=== PATIENT | male | born 1930 | race Caucasian/White ===

== ENCOUNTER 2017-11-28 23:11 | Inpatient (IN) | payer MEDICARE, OTHER ==
[2017-11-29] MEDS ORDERED: NA CHLORIDE 0.9% 1,000 ML ONE (01:15)
[2017-11-29] MEDS ORDERED: FOLIC ACID 5 MG/ML VIAL ONE (01:16)
[2017-11-29 01:43] LABS: Absolute Lymphocytes (CBC) 0.9 K/uL (0.7-4.9); Absolute Monocytes 0.5 K/uL (0.1-1.3); Absolute Neutrophil 7.4 K/uL (1.8-8.0); Basophils % 0.7 % (0-1.3); Eosinophils % 1.2 % (0-4.4); Lymphocytes % 10.3 % (15.3-44.8); MCH 31.8 pg (27.0-35.0); MCV 93.5 fL (80-100); MPV 8.9 fL (7.6-11.3); Monocytes % 5.5 % (3.3-12.3); RBC Red Blood Cell Count 4.06 M/uL (4.33-5.43)
[2017-11-29 01:48] LABS: Protime INR 1.29
[2017-11-29 01:58] LABS: Potassium 3.5 mEq/L (3.6-5.0)
[2017-11-29 02:04] LABS: Albumin 3.1 g/dL (3.2-5.5); Bilirubin Direct 0.1 mg/dL (0-0.2); Bilirubin Total 0.7 mg/dL (0.3-1.2); CKMB Creatine Kinase MB 1.2 ng/ml (0.3-4.0); Magnesium 2.1 mg/dL (1.8-2.5); Protein, Total 6.6 g/dL (6.0-8.3)
--- NOTE | 2017-11-29 03:04 | EDPHYS ---
Physician Documentation [facility] Name: Salvatore Ward Age: 87 yrs Sex: Male : 1930 Arrival Date: 11/28/2017 Time: 23:13 Bed 28 Private MD: ED Physician Christian Garcia HPI: 11/29 00:40 This 87 yrs old Male presents to ER via EMS with complaints of ams, leaning renetta since this morning. 00:40 weakness. The patient presents with trouble concentrating. Onset: The symptoms/episode renetta began/occurred yesterday. Possible causes: unknown. Associated signs and symptoms: The patient has no apparent associated signs or symptoms. Patient's baseline: Neuro: alert and fully oriented. Severity of symptoms: At their worst the symptoms were mild in the emergency department the symptoms are unchanged. Historical: - Allergies: 11/28 23:36 No Known Allergies; lk1 - Home Meds: 11/29 04:01 cholecalciferol (vitamin D3)-vitamin K2 Oral [Active]; omeprazole 20 mg Oral cpDR 1 cap ao once daily [Active]; simvastatin 10 mg Oral tab 1 tab once daily [Active]; - PMHx: 11/28 23:36 Gastric Reflux; HARD OF HEARING; Hyperlipidemia; Hypertension; right shoulder lk1 dislocation; - PSHx: 23:36 shoulder sx; Hernia repair; lk1 - Immunization history:: Adult Immunizations up to date. - Social history:: Smoking status: Patient/guardian denies using tobacco. - Family history:: not pertinent. ROS: 11/29 00:40 Constitutional: Negative for fever, chills, and weight loss, Eyes: Negative for injury, renetta pain, redness, and discharge, ENT: Negative for injury, pain, and discharge, Neck: Negative for injury, pain, and swelling, Cardiovascular: Negative for chest pain, palpitations, and edema, Respiratory: Negative for shortness of breath, cough, wheezing, and pleuritic chest pain, Abdomen/GI: Negative for abdominal pain, nausea, vomiting, diarrhea, and constipation, Back: Negative for injury and pain, : Negative for injury, bleeding, discharge, and swelling, MS/Extremity: Negative for injury and deformity, Skin: Negative for injury, rash, and discoloration, Psych: Negative for depression, anxiety, suicide ideation, homicidal ideation, and hallucinations, Allergy/Immunology: Negative for hives, rash, and allergies, Endocrine: Negative for neck swelling, polydipsia, polyuria, polyphagia, and marked weight changes. Neuro: Positive for weakness. Exam: 00:40 Constitutional: This is a well developed, well nourished patient who is awake, alert, renetta and in no acute distress. Head/Face: Normocephalic, atraumatic. Eyes: Pupils equal round and reactive to light, extra-ocular motions intact. Lids and lashes normal. Conjunctiva and sclera are non-icteric and not injected. Cornea within normal limits. Periorbital areas with no swelling, redness, or edema. ENT: Nares patent. No nasal discharge, no septal abnormalities noted. Tympanic membranes are normal and external auditory canals are clear. Oropharynx with no redness, swelling, or masses, exudates, or evidence of obstruction, uvula midline. Mucous membranes moist. Neck: Trachea midline, no thyromegaly or masses palpated, and no cervical lymphadenopathy. Supple, full range of motion without nuchal rigidity, or vertebral point tenderness. No Meningismus. Chest/axilla: Normal chest wall appearance and motion. Nontender with no deformity. No lesions are appreciated. Cardiovascular: Regular rate and rhythm with a normal S1 and S2. No gallops, murmurs, or rubs. Normal PMI, no JVD. No pulse deficits. Respiratory: Lungs have equal breath sounds bilaterally, clear to auscultation and percussion. No rales, rhonchi or wheezes noted. No increased work of breathing, no retractions or nasal flaring. Abdomen/GI: Soft, non-tender, with normal bowel sounds. No distension or tympany. No guarding or rebound. No evidence of tenderness throughout. Back: No spinal tenderness. No costovertebral tenderness. Full range of motion. Male : Normal genitalia with no discharge or lesions. Skin: Warm, dry with normal turgor. Normal color with no rashes, no lesions, and no evidence of cellulitis. MS/ Extremity: Pulses equal, no cyanosis. Neurovascular intact. Full, normal range of motion. Neuro: Awake and alert, GCS 15, oriented to person, place, time, and situation. Cranial nerves II-XII grossly intact. Motor strength 5/5 in all extremities. Sensory grossly intact. Cerebellar exam normal. Normal gait. Psych: Awake, alert, with orientation to person, place and time. Behavior, mood, and affect are within normal limits. Vital Signs: 11/28 23:38 BP 128 / 82; Pulse 89; Resp 18; Temp 97.9(O); Pulse Ox 97% on 2 lpm NC; Pain 0/10; lk1 04 00:00 BP 125 / 86; Pulse 83; Resp 16; Pulse Ox 97% on 2 lpm NC; lk1 00:30 BP 117 / 77; Pulse 74; Resp 16; Pulse Ox 97% on 2 lpm NC; lk1 01:00 BP 118 / 88; Pulse 79; Resp 16; Pulse Ox 95% on 2 lpm NC; lk1 02:55 BP 124 / 80; Pulse 76; Resp 16; Pulse Ox 98% on R/A; Pain 0/10; ao 03:59 BP 134 / 76; Pulse 78; Resp 16; Pulse Ox 98% on R/A; Pain 0/10; ao NIH Stroke Scale Scores: 03:07 NIHSS Score: 0 renetta MDM: 00:10 Patient medically screened. renetta 00:42 Data reviewed: vital signs, nurses notes, lab test result(s), EKG, radiologic studies, [facility] CT scan, plain films. 11/29 00:40 Order name: Basic Metabolic Panel; Complete Time: 02:58 [facility] 11/29 00:40 Order name: BNP [facility] 11/29 00:40 Order name: CBC with Diff; Complete Time: 02:58 [facility] 11/29 00:40 Order name: Ckmb; Complete Time: 02:58 [facility] 11/29 00:40 Order name: CPK; Complete Time: 02:58 [facility] 11/29 00:40 Order name: LFT's; Complete Time: 02:58 [facility] 11/29 00:40 Order name: Magnesium; Complete Time: 02:58 [facility] 11/29 00:40 Order name: PT-INR; Complete Time: 02:58 [facility] 11/29 00:40 Order name: Ptt, Activated; Complete Time: 02:58 [facility] 11/29 00:40 Order name: Troponin (emerg Dept Use Only); Complete Time: 02:58 [facility] 11/29 00:40 Order name: Lipase; Complete Time: 02:58 [facility] 11/29 00:40 Order name: Urine Culture [facility] 11/29 03:58 Order name: Urine Dipstick--Ancillary (enter results) em1 11/29 04:59 Order name: Urine Dipstick-Ancillary [facility] 11/29 00:40 Order name: XRAY Chest (1 view) [facility] 11/29 00:40 Order name: EKG; Complete Time: 00:55 [facility] 11/29 00:40 Order name: Cardiac monitoring; Complete Time: 03:19 [facility] 11/29 00:40 Order name: EKG - Nurse/Tech; Complete Time: 03:19 [facility] 11/29 00:40 Order name: IV Saline Lock; Complete Time: 03:19 [facility] 11/29 00:40 Order name: Labs collected and sent; Complete Time: 03:19 [facility] 11/29 00:40 Order name: O2 Per Protocol; Complete Time: 03:19 [facility] 11/29 00:40 Order name: O2 Sat Monitoring; Complete Time: 03:19 [facility] 11/29 00:40 Order name: Urine Dipstick-Ancillary (obtain specimen); Complete Time: 03:54 [facility] 11/29 00:40 Order name: CT Head Brain wo Cont [facility] 11/29 03:07 Order name: CONS Physician Consult [facility] 11/29 03:07 Order name: Stroke Protocol [facility] Administered Medications: 01:45 Drug: NS 0.9% 500 ml Route: IV; Rate: bolus; Site: right forearm; lk1 02:26 Follow up: IV Status: Completed infusion; IV Intake: 500ml ao 01:45 Drug: foLIC Acid 1 mg Route: IVPB; Site: right forearm; lk1 02:26 Follow up: IV Status: Completed infusion ao 01:52 Drug: NS 0.9% 1000 ml Route: IV; Rate: 125 ml/hr; Site: right forearm; ao 03:54 Follow up: IV Status: Infusion continued upon admission; IV Intake: 500ml ao 03:22 Drug: Potassium Chloride 20 mEq Route: PO; ao 03:54 Follow up: Response: No adverse reaction ao Disposition: 11/29/17 03:03 Hospitalization ordered by Mireya Waite for Observation. Preliminary diagnosis are Altered mental status, unspecified, Hypokalemia, Weakness. - Bed requested for Telemetry/MedSurg (Inpatient). - Status is Observation. ao - Condition is Stable. - Problem is new. - Symptoms have improved. UTI on Admission? No NIH Stroke Scale - NIH Stroke Score Date: 11/29/2017 Time: 03:07 Total Score = 0 1a. Level of Consciousness (LOC) - 0(Alert) 1b. Level of Consciousness (LOC) (Year \T\ Age) - 0(Both) 1c. LOC Commands (Open \T\ Closes Eyes/Blood Bank Credit Clerk) - 0(Both) 2. Best Gaze (Lateral Gaze Paresis) - 0(Normal) 3. Visual Field Loss - 0(No visual loss) 4. Facial Palsy - 0(Normal) 5a. Left Arm: Motor (10-second hold) - 0(No drift) 5b. Right Arm: Motor (10-second hold) - 0(No drift) 6a. Left Leg: Motor (5-second hold - always test supine) - 0(No drift) 6b. Right Leg: Motor (5-second hold - always test supine) - 0(No drift) 7. Limb Ataxia (finger/nose \T\ heel/rashid - test with eyes open) - 0(Absent) 8. Sensory Loss (pinprick arms/legs/face) - 0(Normal) 9. Best Language: Aphasia (description/naming/reading) - 0(No aphasia) 10. Dysarthria (speech clarity - read or repeat words) - 0(Normal) 11. Extinction and Inattention (visual/tactile/auditory/spatial/personal) - 0(No abnormality) Initials: renetta Signatures: Dispatcher [employer] EDMS Hailee David RN RN mw Anderson, Corey, MD MD cha Kluge, Leah, RN RN lk1 Carlos Eduardo Higuera RN RN ao
--- NOTE | 2017-11-29 03:04 | ER ---
Nurse's Notes [facility] Name: Salvatore Ward Age: 87 yrs Sex: Male : 1930 Arrival Date: 11/28/2017 Time: 23:13 Bed 28 Private MD: Diagnosis: Altered mental status, unspecified;Hypokalemia;Weakness Presentation: 11/28 23:33 Presenting complaint: Child states: "He rides in an electric wheel chair and today he lk1 has been leaning over to the right more than usual. He has a lot of trouble with his vision and hearing, but seems worse today. He can usually pivot on his right leg, but today he hasn't been able to.". Transition of care: patient was not received from another setting of care. Onset of symptoms was November 28, 2017 at 08:30. Care prior to arrival: None. 23:33 Method Of Arrival: EMS: [facility] lk1 23:33 Acuity: DENNY 3 lk1 Triage Assessment: 23:37 General: Appears in no apparent distress. Behavior is calm, cooperative, appropriate lk1 for age. Pain: Denies pain. EENT: Parent/caregiver reports the patient having decreased hearing since chronic. Neuro: Level of Consciousness is awake, alert, obeys commands, Oriented to person, place, time, situation, Visual Basic Developer are equal bilaterally Speech is normal, Facial symmetry appears normal. Cardiovascular: Heart tones S1 S2 present Capillary refill is brisk Patient's skin is warm and dry. Respiratory: Airway is patent Respiratory effort is even, unlabored, Respiratory pattern is regular, symmetrical, Breath sounds are clear bilaterally. GI: Abdomen is non-distended, Bowel sounds present X 4 quads. : No signs and/or symptoms were reported regarding the genitourinary system. Derm: No signs and/or symptoms reported regarding the dermatologic system. Musculoskeletal: No signs and/or symptoms reported regarding the musculoskeletal system. Historical: - Allergies: 23:36 No Known Allergies; lk1 - Home Meds: 11/29 04:01 cholecalciferol (vitamin D3)-vitamin K2 Oral [Active]; omeprazole 20 mg Oral cpDR 1 cap ao once daily [Active]; simvastatin 10 mg Oral tab 1 tab once daily [Active]; - PMHx: 11/28 23:36 Gastric Reflux; HARD OF HEARING; Hyperlipidemia; Hypertension; right shoulder lk1 dislocation; - PSHx: 23:36 shoulder sx; Hernia repair; lk1 - Immunization history:: Adult Immunizations up to date. - Social history:: Smoking status: Patient/guardian denies using tobacco. - Family history:: not pertinent. Screenin/12 03:58 Abuse screen: Denies threats or abuse. Denies injuries from another. Nutritional ao screening: No deficits noted. Tuberculosis screening: No symptoms or risk factors identified. Fall Risk Fall in past 12 months (25 points). Assessment: 00:30 Reassessment: Patient and/or family updated on plan of care and expected duration. Pain lk1 level reassessed. Patient is alert, oriented x 3, equal unlabored respirations, skin warm/dry/pink. Patient states feeling better. Patient states symptoms have improved. 01:30 Reassessment: Receive patient from GABRIEL Crowder. Patient is stable at the moment. Family at ao bedside. Family updated in POC. 02:30 Reassessment: Patient and/or family updated on plan of care and expected duration. Pain ao level reassessed. Patient is alert, oriented x 3, equal unlabored respirations, skin warm/dry/pink. 03:30 Reassessment: Patient and/or family updated on plan of care and expected duration. Pain ao level reassessed. Patient is alert, oriented x 3, equal unlabored respirations, skin warm/dry/pink. waiting on patient to give urine before taken to his room. Vital Signs: 11/28 23:38 BP 128 / 82; Pulse 89; Resp 18; Temp 97.9(O); Pulse Ox 97% on 2 lpm NC; Pain 0/10; lk1 11/29 00:00 BP 125 / 86; Pulse 83; Resp 16; Pulse Ox 97% on 2 lpm NC; lk1 00:30 BP 117 / 77; Pulse 74; Resp 16; Pulse Ox 97% on 2 lpm NC; lk1 01:00 BP 118 / 88; Pulse 79; Resp 16; Pulse Ox 95% on 2 lpm NC; lk1 02:55 BP 124 / 80; Pulse 76; Resp 16; Pulse Ox 98% on R/A; Pain 0/10; ao 03:59 BP 134 / 76; Pulse 78; Resp 16; Pulse Ox 98% on R/A; Pain 0/10; ao NIH Stroke Scale Scores: 03:07 NIHSS Score: 0 renetta ED Course: 11/28 23:13 Patient arrived in ED. em1 23:33 Lakesha Pena, GABRIEL is Primary Nurse. lk1 23:35 Triage completed. lk1 23:39 Arm band placed on right wrist. lk1 11/29 00:10 Christian Garcia MD is Attending Physician. renetta 01:42 CT Head Brain wo Cont In Process Unspecified. EDMS 02:18 X-ray completed. Portable x-ray completed in exam room. Patient tolerated procedure kw well. 02:20 XRAY Chest (1 view) In Process Unspecified. EDMS 03:02 Mireya Waite MD is Hospitalizing Provider. renetta 03:58 No provider procedures requiring assistance completed. Maintain EMS IV. Dressing ao intact. Good blood return noted. Site clean \\T\\ dry. Gauge \\T\\ site: 20 G R FA. Patient admitted, IV remains in place. 04:00 Patient has correct armband on for positive identification. Pulse ox on. NIBP on. ao Administered Medications: 01:45 Drug: NS 0.9% 500 ml Route: IV; Rate: bolus; Site: right forearm; lk1 02:26 Follow up: IV Status: Completed infusion; IV Intake: 500ml ao 01:45 Drug: foLIC Acid 1 mg Route: IVPB; Site: right forearm; lk1 02:26 Follow up: IV Status: Completed infusion ao 01:52 Drug: NS 0.9% 1000 ml Route: IV; Rate: 125 ml/hr; Site: right forearm; ao 03:54 Follow up: IV Status: Infusion continued upon admission; IV Intake: 500ml ao 03:22 Drug: Potassium Chloride 20 mEq Route: PO; ao 03:54 Follow up: Response: No adverse reaction ao Intake: 02:26 IV: 500ml; Total: 500ml. ao 03:54 IV: 500ml; Total: 1000ml. ao Outcome: 03:03 Decision to Hospitalize by Provider. renetta 04:01 Condition: stable ao 04:01 Instructed on the need for admit. 05:00 Admitted to Tele accompanied by nurse, via stretcher, room 422, with chart, Report ao called to REYNALDO Odonnell 05:00 Patient left the ED. ao NIH Stroke Scale - NIH Stroke Score Date: 11/29/2017 Time: 03:07 Total Score = 0 1a. Level of Consciousness (LOC) - 0(Alert) 1b. Level of Consciousness (LOC) (Year \\T\\ Age) - 0(Both) 1c. LOC Commands (Open \\T\\ Closes Eyes/Blade Changer) - 0(Both) 2. Best Gaze (Lateral Gaze Paresis) - 0(Normal) 3. Visual Field Loss - 0(No visual loss) 4. Facial Palsy - 0(Normal) 5a. Left Arm: Motor (10-second hold) - 0(No drift) 5b. Right Arm: Motor (10-second hold) - 0(No drift) 6a. Left Leg: Motor (5-second hold - always test supine) - 0(No drift) 6b. Right Leg: Motor (5-second hold - always test supine) - 0(No drift) 7. Limb Ataxia (finger/nose \\T\\ heel/rashid - test with eyes open) - 0(Absent) 8. Sensory Loss (pinprick arms/legs/face) - 0(Normal) 9. Best Language: Aphasia (description/naming/reading) - 0(No aphasia) 10. Dysarthria (speech clarity - read or repeat words) - 0(Normal) 11. Extinction and Inattention (visual/tactile/auditory/spatial/personal) - 0(No abnormality) Initials: renetta Signatures: Dispatcher [employer] Christian Tipton MD MD cha Martinez, Eric em1 Barb Robins Leah, GABRIEL RN lk1 Carlos Eduardo Higuera RN RN ao
[2017-11-29] MEDS ORDERED: POTASSIUM CL SA 10 MEQ TAB PO ONE (03:18)
[2017-11-29] MEDS ORDERED: ACETAMINOPHEN 500 MG TAB PO PRN (03:21)
[2017-11-29] MEDS ORDERED: ONDANSETRON 4 MG/2 ML VIAL IV PRN (03:21)
[2017-11-29] MEDS: NA CHLORIDE 0.9% 1,000 ML IV SCH ×3 (04:00→22:00)
[2017-11-29 04:59] LABS: Urine Blood NEGATIVE (NEG); Urine Glucose NEGATIVE (NEG); Urine Protein NEGATIVE (NEG); Urine Specific Gravity 1.025 (1.005-1.030)
[2017-11-29 05:14] VITALS: BMI 20.3
--- NOTE | 2017-11-29 05:37 | P.HP ---
Certification for Inpatient Patient admitted to: Observation With expected LOS: <2 Midnights Patient will require the following post-hospital care: None Practitioner: I am a practitioner with admitting privileges, knowledge of patient current condition, hospital course, and medical plan of care. Services: Services provided to patient in accordance with Admission requirements found in Title 42 Section 412.3 of the Code of Federal Regulations Patient History Date of Service: 11/29/17 Reason for admission: Altered mental status/generalized weakness/near syncope History of Present Illness: Patient is an 87-year-old gentleman who came into the hospital with altered mentation. Patient uses an electric scooter to get around. He apparently was slumped over the electric scooter in family brought him into the hospital for evaluation. When he got here he was awake and alert. He was oriented to person place and time. He is not really aware of what happened. He has a hard time hearing but is able to lay a lot of information. He said he is feeling fine but he has some pain in his back. He describes it as being in the sacral region. Otherwise he is moving all his extremities well and he is able to communicate normally. Patient has been admitted to the hospital for workup for possible CVA. His CT of the head was negative. Chest x-ray with no abnormality. Labs show some pre renal azotemia. He will be hydrated and admitted for further treatment. Allergies No Known Allergies Allergy (Unverified 02/21/16 03:57) - Past Medical/Surgical History -: Hypertension -: Gastroesophageal reflux disease -: Dyslipidemia -: Difficulty hearing -: Shoulder dislocation -: Shoulder surgery -: Hernia repair - Family History Father Family History: Reviewed- Non-Contributory - Social History Smoking Status: Never smoker Alcohol use: No CD- Drugs: No Review of Systems 10-point ROS is otherwise unremarkable Physical Examination - Vital Signs Temperature: 98.0 F Blood Pressure: 159/84 Pulse: 78 Respirations: 18 Pulse Ox (%): 100 - Physical Exam General: Alert, In no apparent distress, Oriented x3 HEENT: Atraumatic, PERRLA, Mucous membr. moist/pink, EOMI, Sclerae nonicteric Neck: Supple, 2+ carotid pulse no bruit, No LAD, Without JVD or thyroid abnormality Respiratory: Clear to auscultation bilaterally, Normal air movement Cardiovascular: Regular rate/rhythm, Normal S1 S2, Systolic murmur (3/6) Gastrointestinal: Normal bowel sounds, Hypoactive, Soft and benign, Non- distended, No tenderness Musculoskeletal: No clubbing, No swelling, No tenderness Integumentary: No rashes Neurological: Normal gait, Normal speech, Normal strength at 5/5 x4 extr, Normal tone, Sensation intact, Cranial nerves 3-12 intact, Normal affect Lymphatics: No axilla or inguinal lymphadenopathy - Studies Laboratory Data (last 24 hrs) 11/29/17 01:28: PT 15.3 H, INR 1.29, APTT 29.8 11/29/17 01:28: WBC 9.0, Hgb 12.9 L, Hct 38.0 L, Plt Count 195 11/29/17 01:28: B-Natriuretic Peptide 87 11/29/17 01:28: Sodium 140, Potassium 3.5 L, BUN 21 H, Creatinine 1.27 H, Glucose 121 H, Magnesium 2.1, Total Bilirubin 0.7, AST 16, ALT 10, Alkaline Phosphatase 67, Lipase 35 Assessment & Plan - Problems (Diagnosis) (1) Altered mental status Current Visit: Yes Status: Acute (2) Generalized weakness Current Visit: Yes Status: Acute (3) Syncope Current Visit: Yes Status: Acute (4) History of hypertension Current Visit: Yes Status: Acute (5) Dyslipidemia Current Visit: Yes Status: Acute - Plan Plan: 1. Strict blood pressure control 2. MRI of the brain 3. Echocardiogram 4. Hydration 5. PT evaluation 6. GI and DVT prophylaxis Anticipate discharge home in the morning after workup is completed. Discharge Plan: Home Plan to discharge in: 48 Hours - Advance Directives Does patient have a Living Will: No Does patient have a Durable POA for Healthcare: No - Code Status/Comfort Care Code Status Assessed: Yes Code Status: Full Code Critical Care: No Time Spent Managing PTS Care (In Minutes): 50
--- NOTE | 2017-11-29 08:19 | RAD REPORT ---
EXAM DESCRIPTION: Monty Single View11/29/2017 2:23 am CLINICAL HISTORY: Cough COMPARISON: None FINDINGS: The lungs appear clear of acute infiltrate. The heart is normal size IMPRESSION: No acute abnormalities displayed
--- NOTE | 2017-11-29 08:53 | RAD REPORT ---
EXAM DESCRIPTION: CT - Head Brain Wo Cont - 11/29/2017 6:47 am CLINICAL HISTORY: Alteration of consciousness/memory loss/confusion COMPARISON: None TECHNIQUE: Computed axial tomography of the head was obtained. IV contrast was not requested.A preli minary report was generated by [employer] and reviewed prior to dictation All CT scans are performed using dose optimization technique as appropriate and may include automated exposure control or mA/KV adjustment according to patient size. FINDINGS: An intracranial bleed is not seen . The ventricles are normal in caliber. No extra-axial fluid collection is noted. Mild low-density areas within periventricular white matter likely represent ischemic changes secondary to small vessel disease. Mild to moderate low-density is seen within the deep white matter of right cerebrum. Fluid within the sinuses/ mastoids is not seen. IMPRESSION: Mild to moderate low-density within the deep white matter of the right cerebrum probably is chronic and may represent ischemic changes secondary to small vessel disease. No acute intracranial abnormality is visualized. If the patient's symptoms persist MRI of the brain w ould be recommended.
[2017-11-29] MEDS: CLOPIDOGREL 75 MG TABLET PO SCH (09:14)
[2017-11-29] MEDS: ASPIRIN EC 81 MG TAB PO SCH (09:14)
[2017-11-29] MEDS: ENOXAPARIN 30 MG/0.3 ML SQ SCH (09:14)
--- NOTE | 2017-11-29 11:21 | RAD REPORT ---
EXAM DESCRIPTION: MRI - Brain Wo Cont - 11/29/2017 10:47 am CLINICAL HISTORY: Weakness, AMS, suspected CVA COMPARISON: CT head November 29 TECHNIQUE: Sagittal T1-weighted images were obtained along with axial PD, heavily T2-weighted and T2 -FLAIR images. Axial DWI and ADC mapping sequences were also obtained along with coronal heavily T2-w eighted images. FINDINGS: No intracranial hemorrhage, mass, measurable edema or midline shift. Diffusion-weighted im aging shows hypointense signal in the deep periventricular white matter near the left frontal parieta l junction extending inferiorly along the posterior limb internal capsule on the left and into the ex ternal capsule at the lateral margin of the basal ganglia. This curvilinear signal abnormality has ma tching diminished signal on ADC mapping indicating acute infarction. No other area of acute diffusion signal abnormality. 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 Atrophy changes a re present with ventricular size in proportion. No extra-axial fluid collections. Walton-matter/white m atter junction is preserved. Signal voids are seen as a normal finding in the major intracranial vess els. No globe or orbital content abnormality. No sella or supra sella abnormality. Mastoid air cells and paranasal sinuses are clear. IMPRESSION: Acute nonhemorrhagic infarction changes are present seen as a curvilinear signal abnorma lity along the left external capsule, posterior limb internal capsule and deep periventricular white matter at the frontoparietal junction. Underlying mild to moderate chronic ischemic change and moderate atrophy. Ventricular size is in prop ortion.
--- NOTE | 2017-11-29 15:31 | EKG ---
Test Date: 2017-11-29 Test Time: 02:44:31 Housekeeping Room Inspector: GABRIELLA MEASUREMENT RESULTS: Intervals: Rate: 61 IL: 262 QRSD: 84 QT: 424 QTc: 426 [place]: P: 31 IL: 262 QRS: 26 T: 27 INTERPRETIVE STATEMENTS: Sinus rhythm with 1st degree AV block Otherwise normal ECG Compared to ECG 05/08/2003 19:48:00 First degree AV block now present Sinus tachycardia no longer present Myocardial infarct finding no longer present Electronically Signed On 11-29-17 15:29:00 CDT by Eben Ramirez
[2017-11-29] MEDS ORDERED: HOME MED 1 EA UNK (Docusate Sodium [Docusate Sodium] 100 MG) PO PRN (16:09)
[2017-11-29] MEDS: AMLODIPINE 5 MG TAB PO SCH (17:07)
[2017-11-29] MEDS ORDERED: DOCUSATE NA 100 MG CAP PO PRN (17:13)
--- NOTE | 2017-11-29 18:43 | RAD REPORT ---
EXAM DESCRIPTION: SHAR - ROSENDO - 11/29/2017 3:52 pm CLINICAL HISTORY: CVA COMPARISON: MR brain same date, CT head same date TECHNIQUE: Real-time sonographic evaluation of both carotid systems was performed. Doppler interroga tion was performed with waveform tracing bilaterally. FINDINGS: Normal high resistance waveforms are noted in both external carotid arteries. The common c arotid arteries and internal carotid arteries show normal low resistance waveforms. Plaquing changes are present in each internal carotid artery, right greater than left. On visual insp ection, soft plaquing on the right creates an approximately 60% stenosis. Vasculature is tortuous. Pe ak systolic and end-diastolic velocity values fall in a normal range. ICA/CCA ratios are 1.5 on the r ight and 1.7 on the left. Antegrade flow seen in both vertebral arteries. Velocity values and ratios were recorded and are retained in the patient's imaging records. IMPRESSION: Bilateral internal carotid atherosclerotic plaquing changes are present with vascular to rtuosity. Proximal ICA stenosis on the right is estimated at least 60%. Left ICA velocity ratio values would support 60-70% stenosis although visually this does not appear t o be that severe.
[2017-11-29 20:49] VITALS: O2SAT 95
[2017-11-29] MEDS ORDERED: ATORVASTATIN 20 MG TAB PO SCH (21:00)
[2017-11-30] MEDS: NA CHLORIDE 0.9% 1,000 ML IV SCH (06:25)
[2017-11-30] MEDS ORDERED: PANTOPRAZOLE 40MG TABLET PO SCH (07:30)
[2017-11-30 07:42] LABS: Phosphorus 2.5 mg/dL (2.5-4.3); Potassium 3.6 mEq/L (3.6-5.0)
[2017-11-30] MEDS ORDERED: AMLODIPINE 5 MG TAB PO SCH (09:00)
[2017-11-30] MEDS ORDERED: POTASSIUM 25 MEQ EFFERV TAB PO ONE (09:00)
[2017-11-30] MEDS ORDERED: HOME MED 1 EA UNK (Omeprazole [Omeprazole] 1 CAP) PO SCH (09:00)
[2017-11-30] MEDS ORDERED: VITAMIN D 1000 UNIT TAB PO SCH (09:00)
[2017-11-30] MEDS ORDERED: HOME MED 1 EA UNK (Cholecalciferol (Vitamin D3) [Vitamin D3] 1 CAP) PO SCH (09:00)
[2017-11-30] MEDS: AMLODIPINE 5 MG TAB PO SCH (09:55)
[2017-11-30] MEDS: ASPIRIN EC 81 MG TAB PO SCH (09:55)
[2017-11-30] MEDS: CLOPIDOGREL 75 MG TABLET PO SCH (09:57)
[2017-11-30] MEDS: ENOXAPARIN 30 MG/0.3 ML SQ SCH (09:58)
[2017-11-30 11:25] VITALS: BP 180/72; TEMP 97
--- NOTE | 2017-11-30 13:18 | ECHO ---
HEIGHT: 5 ft 8 in WEIGHT: 134 lb 0 oz DATE OF STUDY: 11/30/[address]: Mireya Waite MD 2-DIMENSIONAL: YES M.MODE: YES DOPPLER: YES COLOR FLOW: YES TDS: NO PORTABLE: NO DEFINITY: NO BUBBLE STUDY: NO DIAGNOSIS: STROKE CARDIAC HISTORY: CATHERIZATION: NO SURGERY: NO PROSTHETIC VALVE: NO PACEMAKER: NO MEASUREMENTS (cm) DIASTOLIC (NORMALS) SYSTOLIC (NORMALS) IVSd 1.2 (0.6-1.2) LA Diam (1.9-4.0) LVEF 75% LVIDd 5.1 (3.5-5.7) LVIDs 2.8 (2.0-3.5) %FS 44% LVPWd 1.2 (0.6-1.2) Ao Diam 3.3 (2.0-3.7) 2 DIMENSIONAL ASSESSMENT: RIGHT ATRIUM: NORMAL LEFT ATRIUM: NORMAL RIGHT VENTRICLE: NORMAL LEFT VENTRICLE: NORMAL TRICUSPID VALVE: NORMAL MITRAL VALVE: NORMAL PULMONIC VALVE: NORMAL AORTIC VALVE: AOTRIC SCLEROSIS PERICARDIAL EFFUSION: NONE AORTIC ROOT: NORMAL LEFT VENTRICULAR WALL MOTION: NORMAL DOPPLER/COLOR FLOW: MODERATE AORTIC STENOSIS 1.2 cm squared. MILD TRICUSPID REGURGITATION. COMMENTS: MODERATE AORTIC STENOSIS 1.2 cm squared. MILD TRICUSPID REGURGITATION. NO THROMBUS OR VEGETATION. NORMAL LEFT VENTRICULAR SIZE AND FUNCTION. TECHNOLOGIST: Fermin URIOSTEGUI
--- NOTE | 2017-11-30 17:46 | P.DS ---
Admission Date: 11/29/17 Discharge Date: 11/30/17 Primary Care Provider: None Disposition: ROUTINE DISCHARGE Discharge Condition: GOOD Reason for Admission: Altered mental status/generalized weakness/near syncope Consultations: Neurology - Dr Carey Brief History of Present Illness: Patient is an 87-year-old gentleman who came into the hospital with altered mentation. Patient uses an electric scooter to get around. He apparently was slumped over the electric scooter in family brought him into the hospital for evaluation. When he got here he was awake and alert. He was oriented to person place and time. He is not really aware of what happened. He has a hard time hearing but is able to lay a lot of information. He said he is feeling fine but he has some pain in his back. He describes it as being in the sacral region. Otherwise he is moving all his extremities well and he is able to communicate normally. Patient has been admitted to the hospital for workup for possible CVA. His CT of the head was negative. Chest x-ray with no abnormality. Labs show some pre renal azotemia. He will be hydrated and admitted for further treatment. Hospital Course: Overall during the hospital stay patient remained stable Patient initially was admitted to the hospital after he was found slumped over by the family member for 20 seconds on his electric scooter. Once the patient was brought over to the ER he was more alert and oriented. Patient is hard of hearing and thus there was a concern for altered mental status. However patient was alert and oriented x3 and remained alert and oriented x3 here in the hospital after he had his hearing aid. Head CT initially was negative. MRI was consistent with acute ischemic infarct. Neurology was consulted. Patient was started on aspirin and statin on the day of admission. Physical therapy was consulted worked with patient and stated that patient will benefit from home health rehab. At home patient uses a scooter to get around and stated that he has been having trouble walking for a long time and that is his baseline. Patient also had speech therapy follow up with him here in the hospital and the patient passed bedside swallow study. Neurology recommended the patient follow up with them outpatient in about 1-2 weeks. Patient then was discharged home under stable condition and was asked to follow up with neurology and had a prescription for aspirin and statin. Patient was also told to be on a low cholesterol diet. Patient had no neurological deficits on the day of discharge and has no residual neurological deficit from the acute CVA. Vital Signs/Physical Exam: Temp Pulse Resp BP Pulse Ox 97 F 52 15 180/72 H 93 11/30/17 11:24 11/30/17 11:24 11/30/17 11:24 11/30/17 11:24 11/30/17 11:24 General: Alert, In no apparent distress, Oriented x3 HEENT: Atraumatic, PERRLA, EOMI Neck: Supple, JVD not distended Respiratory: Clear to auscultation bilaterally, Normal air movement Cardiovascular: Regular rate/rhythm, Normal S1 S2 Gastrointestinal: Normal bowel sounds, No tenderness Musculoskeletal: No tenderness Integumentary: No rashes Neurological: Normal speech, Normal strength at 5/5 x4 extr, Normal tone, Normal affect, Abnormal gait Lymphatics: No axilla or inguinal lymphadenopathy Laboratory Data at Discharge: WBC 9.0 K/uL (4.3-10.9) 11/29/17 01:28 Hgb 12.9 g/dL (13.6-17.9) L 11/29/17 01:28 Hct 38.0 % (39.6-49.0) L 11/29/17 01:28 Plt Count 195 K/uL (152-406) 11/29/17 01:28 PT 15.3 SECONDS (9.5-12.5) H 11/29/17 01:28 INR 1.29 11/29/17 01:28 APTT 29.8 SECONDS (24.3-36.9) 11/29/17 01:28 Sodium 138 mEq/L (135-145) 11/30/17 06:50 Potassium 3.6 mEq/L (3.6-5.0) 11/30/17 06:50 BUN 15 mg/dL (6-20) 11/30/17 06:50 Creatinine 0.88 mg/dL (0.61-1.24) 11/30/17 06:50 Glucose 76 mg/dL (65-120) 11/30/17 06:50 Phosphorus 2.5 mg/dL (2.5-4.3) 11/30/17 06:50 Magnesium 2.0 mg/dL (1.8-2.5) 11/30/17 06:50 Total Bilirubin 0.7 mg/dL (0.3-1.2) 11/29/17 01:28 AST 16 IU/L (10-42) 11/29/17 01:28 ALT 10 IU/L (10-60) 11/29/17 01:28 Alkaline Phosphatase 67 IU/L (42-121) 11/29/17 01:28 B-Natriuretic Peptide 87 pg/ml (<=100) 11/29/17 01:28 Triglycerides 66 mg/dL (35-160) 11/29/17 04:47 Cholesterol 137 mg/dL (<200) 11/29/17 04:47 HDL Cholesterol 30 mg/dL (27-67) 11/29/17 04:47 Cholesterol/HDL Ratio 4.57 11/29/17 04:47 Lipase 35 U/L (22-51) 11/29/17 01:28 Home Medications: Amlodipine Besylate [Norvasc] 5 mg PO DAILY 11/29/17 Cholecalciferol (Vitamin D3) [Vitamin D3] 1 cap PO DAILY 11/29/17 Docusate Sodium 100 mg PO BIDP PRN 11/29/17 Omeprazole 1 cap PO DAILY 11/29/17 Aspirin 81 mg PO DAILY #30 tab.chew 11/30/17 Atorvastatin Calcium [Lipitor*] 40 mg PO BEDTIME #30 tab 11/30/17 New Medications: Aspirin 81 mg PO DAILY #30 tab.chew Atorvastatin Calcium [Lipitor*] 40 mg PO BEDTIME #30 tab Patient Discharge Instructions: Please f/u with Dr Carey in the clinic in 1 to 2 weeks post discharge. -For acute stroke. Please f/u with Dr Ramirez in the clinic in 1 to 2 weeks post discharge. -For left ICA stenosis of 60-70%. New medicaiton. ASA 81mg Daily. Lipitor 40mg Daily. Continue all other medication as prescribed. Diet: Regular Activity: Ad sharon Followup: Eben Ramirez MD [ACTIVE - CAN ADMIT] - 1 Week (call the office to make an appointment in 1-2 weeks. ) Marty Carey MD [ASSOCIATE-ACTIVE - CAN ADMIT] - 1-2 Weeks (call the office to make an appointment in 1-2 weeks.)
== END 2017-11-30 14:12 | disposition home health service (06) | DRG 66 ==
LOC: ER 23:11 → ERHOLD 11-29 03:04 → 4TH 11-29 04:06 → OBSVTOIN 11-29 15:32
PROVIDERS: ADMIT Hospitalist; ATTEND Family Medicine
DX: I63.8 Other cerebral infarction (principal); R53.1 Weakness; I10 Essential (primary) hypertension; K21.9 Gastro-esophageal reflux disease without esophagitis; E78.5 Hyperlipidemia, unspecified; H91.90 Unspecified hearing loss, unspecified ear; R79.89 Other specified abnormal findings of blood chemistry; R55 Syncope and collapse; M53.3 Sacrococcygeal disorders, not elsewhere classified
CPT/HCPCS: 36415; 70450; 70551; 71045; 80048; 80061; 80076; 81003; 82550; 82553; 83690; 83735; 83880; 84100; 84484; 85025; 85610; 85730; 87086; 87088; 93005; 93306; 93880; 96361; 96365; 97163; 99285; G0378; J1650; J7030

== ENCOUNTER 2018-02-15 11:58 | Observation (INO) | payer MEDICARE ==
[2018-02-15 12:48] LABS: Absolute Lymphocytes (CBC) 1.4 K/uL (0.7-4.9); Absolute Monocytes 0.4 K/uL (0.1-1.3); Absolute Neutrophil 4.1 K/uL (1.8-8.0); Basophils % 0.6 % (0-1.3); Eosinophils % 1.4 % (0-4.4); Hematocrit 34.5 % (39.6-49.0); Lymphocytes % 23.4 % (15.3-44.8); MCV 91.4 fL (80-100); MPV 8.4 fL (7.6-11.3); Monocytes % 6.2 % (3.3-12.3); RBC Red Blood Cell Count 3.77 M/uL (4.33-5.43)
[2018-02-15] MEDS ORDERED: NA CHLORIDE 0.9% 1,000 ML ONE (12:57)
[2018-02-15 13:03] LABS: Albumin 2.2 g/dL (3.4-5.0); Bilirubin Direct 0.3 mg/dL (0-0.2); Bilirubin Total 0.9 mg/dL (0.2-1.0); Potassium 3.9 mmol/L (3.5-5.1); Protein, Total 6.4 g/dL (6.4-8.2)
[2018-02-15] MEDS ORDERED: ONDANSETRON 4 MG/2 ML VIAL ONE (13:45)
[2018-02-15] MEDS ORDERED: MORPHINE 4 MG/ML SYR ONE (13:45)
--- NOTE | 2018-02-15 13:48 | RAD REPORT ---
EXAM DESCRIPTION: CTAbdomen Pelvis W Contrast - 02/15/2018 1:31 pm CLINICAL HISTORY: Abdominal pain. IV only COMPARISON: No comparisons TECHNIQUE: Biphasic CT imaging of the abdomen and pelvis was performed with 100 ml non-ionic IV cont rast. All CT scans are performed using dose optimization technique as appropriate and may include automated exposure control or mA/KV adjustment according to patient size. FINDINGS: Linear subsegmental atelectasis is seen in both lower lobes posteriorly. Prominent distention of the gallbladder is seen. Mild fatty liver is present. The spleen, adrenal gla nds are within normal limits. Small bilateral renal cysts. Pancreas shows mild atrophy. Large amount of stool is present in the rectosigmoid colon with wall thickening and pericolonic fluid seen. Significant retained stool is also noted within the proximal colon. No bowel obstruction is id entified. No free fluid or free air. Bilobed aortic aneurysm is seen inferior to the renal artery is with moderate mural thrombus present. Maximum transverse dimension of the aneurysm is 3.9 cm. A maritza l appendix is seen. No evidence of significant lymphadenopathy. No suspicious bony findings. IMPRESSION: Significant fecal retention in the colon. The wall thickening and mild fluid surrounding the rectosigmoid colon favors stercoral colitis. Gallbladder distension. 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
[2018-02-15 13:53] LABS: Blood Morphology Comment NOT SEEN (NOT SEEN); Platelet Estimate ADEQ
[2018-02-15] MEDS ORDERED: FLEET ENEMA ADULT PR ONE (14:18)
[2018-02-15] MEDS ORDERED: BISACODYL 10 MG RECTAL SUPP PR PRN (15:25)
[2018-02-15] MEDS ORDERED: POLYETHYL GLY 3350 17 GM/DOSE PO PRN (15:25)
[2018-02-15] MEDS ORDERED: FLEET ENEMA ADULT PR PRN (15:25)
[2018-02-15] MEDS ORDERED: ONDANSETRON 4 MG/2 ML VIAL IV PRN (15:25)
[2018-02-15] MEDS ORDERED: ACETAMINOPHEN 500 MG TAB PO PRN (15:25)
[2018-02-15 15:36] LABS: Urine Blood NEGATIVE (NEG); Urine Glucose NEGATIVE (NEG); Urine Protein NEGATIVE (NEG); Urine pH 5.5 (5.0-7.0)
--- NOTE | 2018-02-15 15:46 | ER ---
Nurse's Notes [facility] Name: Salvatore Ward Age: 87 yrs Sex: Male : 1930 Arrival Date: 02/15/2018 Time: 12:00 Bed 16 Private MD: Diagnosis: Unspecified abdominal pain;Diarrhea, unspecified;Colitis Presentation: 02/15 12:01 Presenting complaint: EMS states: Reports Diarrhea off and on for about week, reports sg abd pain in suprapubic area with BM. Transition of care: patient was not received from another setting of care. Onset of symptoms was February 15, 2018. Risk Assessment: Do you want to hurt yourself or someone else? Patient reports no desire to harm self or others. Initial Sepsis Screen: Does the patient meet any 2 criteria? No. Patient's initial sepsis screen is negative. Does the patient have a suspected source of infection? No. Patient's initial sepsis screen is negative. Care prior to arrival: None. 12:01 Method Of Arrival: EMS: [facility] sg 12:01 Acuity: DENNY 3 sg Historical: - Allergies: 12:06 No Known Allergies; sg - Home Meds: 12:06 cholecalciferol (vitamin D3)-vitamin K2 Oral [Active]; omeprazole 20 mg Oral cpDR 1 cap sg once daily [Active]; simvastatin 10 mg Oral tab 1 tab once daily [Active]; - PMHx: 12:06 Gastric Reflux; HARD OF HEARING; Hyperlipidemia; Hypertension; right shoulder sg dislocation; - PSHx: 12:06 shoulder sx; Hernia repair; sg - Immunization history:: Adult Immunizations up to date. - Social history:: Smoking status: Patient/guardian denies using tobacco. - Ebola Screening: : No symptoms or risks identified at this time. Screenin:06 Abuse screen: Denies threats or abuse. Denies injuries from another. Nutritional sg screening: No deficits noted. Tuberculosis screening: No symptoms or risk factors identified. Never had TB. Fall Risk None identified. 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 13:00 General: Appears in no apparent distress. uncomfortable, slender, well groomed, well kr2 developed, well nourished, Behavior is calm, cooperative, appropriate for age. Pain: Complains of pain in left lower quadrant and right lower quadrant and suprapubic area rectum Pain currently is 6 out of 10 on a pain scale. Quality of pain is described as pressure, sharp, stabbing, Is intermittent, Alleviated by nothing. Neuro: Level of Consciousness is awake, alert, obeys commands, Oriented to person, place, time, situation. Cardiovascular: Capillary refill < 3 seconds in bilateral fingers Patient's skin is warm and dry. Respiratory: Airway is patent Respiratory effort is even, unlabored, Respiratory pattern is regular, symmetrical. GI: Abdomen is flat, non-distended, Bowel sounds present X 4 quads. Abd is soft X 4 quads Abdomen is tender to palpation in right lower quadrant and left lower quadrant Reports diarrhea. : Denies burning with urination. EENT: Oral mucosa is moist. Derm: Skin is intact, is fragile, Skin is pink, warm \T\ dry. Bruising that is bright red, dark purple, on bilateral upper extremities. Musculoskeletal: Circulation, motion, and sensation intact. Range of motion: intact in all extremities. 14:00 Reassessment: Patient appears in no apparent distress at this time. Patient and/or kr2 family updated on plan of care and expected duration. Pain level reassessed. Patient is alert, oriented x 3, equal unlabored respirations, skin warm/dry/pink. Patient states feeling better. 15:11 Reassessment: Patient appears in no apparent distress at this time. Patient and/or kr2 family updated on plan of care and expected duration. Pain level reassessed. Patient is alert, oriented x 3, equal unlabored respirations, skin warm/dry/pink. Patient states feeling better. 16:00 Reassessment: Patient appears in no apparent distress at this time. Patient and/or kr2 family updated on plan of care and expected duration. Pain level reassessed. Patient is alert, oriented x 3, equal unlabored respirations, skin warm/dry/pink. Bowel movement with formed stool, incontinence care provided. 17:31 Reassessment: Patient appears in no apparent distress at this time. Patient and/or kr2 family updated on plan of care and expected duration. Pain level reassessed. Patient is alert, oriented x 3, equal unlabored respirations, skin warm/dry/pink. Incontinence care provided. Patient states feeling better. Vital Signs: 12:02 BP 114 / 69; Pulse 82; Resp 16 S; Temp 97.7(O); Pulse Ox 98% on R/A; Weight 74.84 kg sg (R); Pain 0/10; 14:02 BP 121 / 63; Pulse 59; Resp 18; Pulse Ox 97% ; mh5 15:11 BP 123 / 76; Pulse 66; Resp 16; Pulse Ox 97% on R/A; kr2 15:17 BP 123 / 76; Pulse 76; Resp 18; Pulse Ox 96% on R/A; mh5 17:40 BP 113 / 62; Pulse 68; Resp 17; Pulse Ox 98% on R/A; kr2 ED Course: 12:00 Patient arrived in ED. sg 12:00 Initial lab(s) drawn, by me, sent to lab. Inserted saline lock: 22 gauge in right mh5 antecubital area, using aseptic technique. Blood collected. 12:02 Triage completed. sg 12:03 Arm band placed on. 12:05 Gage Maurer PA is PHCP. [facility] 12:05 Ashvin Fernandez MD is Attending Physician. [facility] 12:33 Hany Delgado, GABRIEL is Primary Nurse. sg 13:02 Patient has correct armband on for positive identification. Placed in gown. Bed in low mh5 position. Call light in reach. Side rails up X 1. Side rails up X2. Adult w/ patient. Warm blanket given. Pulse ox on. NIBP on. 13:03 CBC with Diff Sent. [facility] 13:04 Manual Differential Sent. [facility] 13:31 CT Abd/Pelvis - W/Contrast In Process Unspecified. EDMS 13:31 CT completed. Patient tolerated procedure well. Patient moved to CT via stretcher. Patient moved back from CT. 15:15 Urine collected: clean catch specimen, clear. 5 15:16 Urine Microscopic Only Sent. [facility] 15:35 Amelia Sánchez, GABRIEL is Primary Nurse. kr2 15:42 Lindsey Brito MD is Hospitalizing Provider. [facility] 17:42 No provider procedures requiring assistance completed. Patient admitted, IV remains in kr2 place. Administered Medications: 13:49 Drug: NS 0.9% 500 ml Route: IV; Rate: bolus; Site: right forearm; kr2 13:49 Drug: morphine 2 mg Route: IVP; Site: right forearm; kr2 14:00 Follow up: Response: No adverse reaction; Pain is decreased kr2 13:49 Drug: Zofran 4 mg Route: IVP; Site: right forearm; kr2 15:00 Follow up: Response: No adverse reaction kr2 15:10 Drug: Fleet Enema 133 ml Route: IA; kr2 16:00 Follow up: Response: No adverse reaction; Bowel movement with formed stool kr2 Intake: Outcome: 15:45 Decision to Hospitalize by Provider. susan 17:42 Admitted to Med/surg accompanied by tech, via stretcher, room 218, with chart, Report kr2 called to Carley 17:42 Condition: stable 17:42 Instructed on the need for admit, Demonstrated understanding of instructions. 17:44 Patient left the ED. kr2 Signatures: Dispatcher [employer] EDHany Vasquez, GABRIEL RN sg Gage Maurer PA PA jmm Jones, Susan sj Martinez, Maria [facility] Amelia Sánchez RN RN kr2 Corrections: (The following items were deleted from the chart) 12:04 12:02 BP 126 / 90; Pulse 82bpm; Resp 16bpm; Spontaneous; Pulse Ox 98% RA; Temp 97.7F sg Oral; 74.84 kg Reported; Pain 0/10; sg 17:43 17:42 Admitted to Med/surg accompanied by tech, via stretcher, room 208, with chart, kr2 Report called to Carley kr2
--- NOTE | 2018-02-15 15:46 | EDPHYS ---
Physician Documentation [facility] Name: Salvatore Ward Age: 87 yrs Sex: Male : 1930 Arrival Date: 02/15/2018 Time: 12:00 Bed 16 Private MD: ED Physician Ashvin Fernandez HPI: 02/15 12:10 This 87 yrs old Male presents to ER via EMS with complaints of Diarrhea. jmm 12:10 The patient presents to the emergency department with diarrhea, abdominal pain, of the jmm suprapubic area, right lower quadrant and left lower quadrant. Onset: The symptoms/episode began/occurred gradually, 6 day(s) ago. Possible causes: unknown. Associated signs and symptoms: Pertinent negatives: fever, nausea, vomiting. This is an 87 year old male with a history of HLP, HTN, that presents to the ED with diarrhea for 6 days along with lower abdominal pain. Patient denies recent abdominal surgery. The patient states that he feels like he still has something in his colon. The patient denies fever or vomiting, recent travel or recent antibiotic use. . Historical: - Allergies: 12:06 No Known Allergies; sg - Home Meds: 12:06 cholecalciferol (vitamin D3)-vitamin K2 Oral [Active]; omeprazole 20 mg Oral cpDR 1 cap sg once daily [Active]; simvastatin 10 mg Oral tab 1 tab once daily [Active]; - PMHx: 12:06 Gastric Reflux; HARD OF HEARING; Hyperlipidemia; Hypertension; right shoulder sg dislocation; - PSHx: 12:06 shoulder sx; Hernia repair; sg - Immunization history:: Adult Immunizations up to date. - Social history:: Smoking status: Patient/guardian denies using tobacco. - Ebola Screening: : No symptoms or risks identified at this time. ROS: 12:10 Constitutional: Negative for fever, chills, and weight loss, Cardiovascular: Negative jmm for chest pain, palpitations, and edema, Respiratory: Negative for shortness of breath, cough, wheezing, and pleuritic chest pain. 12:10 Back: Negative for injury and pain. 12:10 Abdomen/GI: Positive for abdominal pain, diarrhea. 12:10 All other systems are negative. Exam: 12:10 Head/Face: atraumatic. Chest/axilla: Normal chest wall appearance and motion. jmm Nontender with no deformity. No lesions are appreciated. Cardiovascular: Regular rate and rhythm. No gallops, murmurs, or rubs. Full/Equal distal pulses. Respiratory: Lungs have equal breath sounds bilaterally, clear to auscultation. No rales, rhonchi or wheezes noted. No increased work of breathing, no retractions or nasal flaring. 12:10 Constitutional: The patient appears in no acute distress, alert, awake. 12:10 Abdomen/GI: Inspection: abdomen appears normal, Bowel sounds: normal, Palpation: soft, in the right lower quadrant and left lower quadrant. 12:10 Skin: Appearance: Color: normal in color. Vital Signs: 12:02 BP 114 / 69; Pulse 82; Resp 16 S; Temp 97.7(O); Pulse Ox 98% on R/A; Weight 74.84 kg sg (R); Pain 0/10; 14:02 BP 121 / 63; Pulse 59; Resp 18; Pulse Ox 97% ; mh5 15:11 BP 123 / 76; Pulse 66; Resp 16; Pulse Ox 97% on R/A; kr2 15:17 BP 123 / 76; Pulse 76; Resp 18; Pulse Ox 96% on R/A; mh5 17:40 BP 113 / 62; Pulse 68; Resp 17; Pulse Ox 98% on R/A; kr2 MDM: 12:10 Data reviewed: vital signs, nurses notes, lab test result(s), radiologic studies, CT jm scan. Counseling: I had a detailed discussion with the patient and/or guardian regarding: the historical points, exam findings, and any diagnostic results supporting the discharge/admit diagnosis, lab results, radiology results, the need for further work-up and treatment in the hospital. Physician consultation: Lindsey Brito MD. 12:13 Patient medically screened. [facility] 02/15 12:14 Order name: Amylase, Serum; Complete Time: 13:07 [facility] 02/15 12:14 Order name: Basic Metabolic Panel; Complete Time: 13: [facility] 02/15 12:14 Order name: CBC with Diff; Complete Time: 13:58 [facility] 02/15 12:14 Order name: Creatinine for Radiology; Complete Time: 13:07 [facility] 02/15 12:14 Order name: Hepatic Function; Complete Time: 13:07 [facility] 02/15 12:14 Order name: Lipase; Complete Time: 13:07 [facility] 02/15 12:14 Order name: Urine Microscopic Only; Complete Time: 16:21 [facility] 02/15 12:57 Order name: Manual Differential; Complete Time: 13:58 [facility] 02/15 15:30 Order name: CBC with Automated Diff [facility] 02/15 15:30 Order name: CBC with Automated Diff [facility] 02/15 15:30 Order name: Comprehensive Metabolic Panel [facility] 02/15 15:30 Order name: Comprehensive Metabolic Panel [facility] 02/15 15:30 Order name: Magnesium [facility] 02/15 15:30 Order name: Magnesium [facility] 02/15 12:14 Order name: IV Saline Lock; Complete Time: 13:03 [facility] 02/15 12:14 Order name: Labs collected and sent; Complete Time: 13:04 [facility] 02/15 12:14 Order name: Urine Dipstick-Ancillary (obtain specimen); Complete Time: 15:15 [facility] 02/15 12:14 Order name: CT Abd/Pelvis - W/Contrast; Complete Time: 13:49 [facility] 02/15 15:30 Order name: Physical Therapy Consult [facility] 02/15 15:30 Order name: Heart Healthy [facility] 02/15 15:30 Order name: Urine Dipstick--Ancillary (enter results); Complete Time: 15:46 ag Administered Medications: 13:49 Drug: NS 0.9% 500 ml Route: IV; Rate: bolus; Site: right forearm; kr2 13:49 Drug: morphine 2 mg Route: IVP; Site: right forearm; kr2 14:00 Follow up: Response: No adverse reaction; Pain is decreased kr2 13:49 Drug: Zofran 4 mg Route: IVP; Site: right forearm; kr2 15:00 Follow up: Response: No adverse reaction kr2 15:10 Drug: Fleet Enema 133 ml Route: LA; kr2 16:00 Follow up: Response: No adverse reaction; Bowel movement with formed stool kr2 Disposition: 18:31 Co-signature as Attending Physician, Ashvin Fernandez MD. rn Disposition: 02/15/18 15:45 Hospitalization ordered by Lindsey Brito for Observation. Preliminary diagnosis are Unspecified abdominal pain, Diarrhea, unspecified, Colitis. - Bed requested for Telemetry/MedSurg (observation). - Status is Observation. kr2 - Condition is Stable. - Problem is new. - Symptoms are unchanged. UTI on Admission? No Signatures: Dispatcher [employer] EDMS Hany Delgado, RN RN Gage Handley PA PA jmm Nieto, Roman, MD MD rn Gallardo, Ana ag Fitzgerald, Diane, RN RN df Amelia Sánchez RN RN kr2 Corrections: (The following items were deleted from the chart) 16:09 15:45 Hospitalization Ordered by Lindsey Brito MD for Observation. Preliminary diagnosis df is Unspecified abdominal pain; Diarrhea, unspecified; Colitis. Bed requested for Telemetry/MedSurg (observation). Status is Observation. Condition is Stable. Problem is new. Symptoms are unchanged. UTI on Admission? No. [facility] 16:10 16:09 02/15/2018 15:45 Hospitalization Ordered by Lindsey Brito MD for Observation. ag Preliminary diagnosis is Unspecified abdominal pain; Diarrhea, unspecified; Colitis. Bed requested for Telemetry/MedSurg (observation). Status is Observation. Condition is Stable. Problem is new. Symptoms are unchanged. UTI on Admission? No. df 17:44 16:10 02/15/2018 15:45 Hospitalization Ordered by Lindsey Brito MD for Observation. kr2 Preliminary diagnosis is Unspecified abdominal pain; Diarrhea, unspecified; Colitis. Bed requested for Telemetry/MedSurg (observation). Status is Observation. Condition is Stable. Problem is new. Symptoms are unchanged. UTI on Admission? No. ag
[2018-02-15] MEDS: METRONIDAZOLE 500mg IVPB 500 MG/100 ML BAG IV SCH (16:00)
[2018-02-15] MEDS: CIPROFLOXACIN 400mg IV 400 MG/200 ML BAG IV SCH (16:00)
[2018-02-15 16:06] LABS: Urine Bacteria <20 /HPF (NONE SEEN); Urine Culture Reflex Order NOT NEEDED; Urine RBC <5 /HPF (NONE SEEN)
[2018-02-15] MEDS: ENOXAPARIN 40 MG/0.4 ML SQ SCH (17:00)
[2018-02-15] MEDS: PANTOPRAZOLE 40MG TABLET PO SCH (17:00)
[2018-02-15] MEDS: NA CHLORIDE 0.9% 1,000 ML IV SCH (18:13)
[2018-02-15 19:44] VITALS: BMI 15.9
[2018-02-15] MEDS: DOCUSATE NA 100 MG CAP PO SCH (20:50)
[2018-02-15] MEDS ORDERED: ATORVASTATIN 20 MG TAB PO SCH (21:00)
--- NOTE | 2018-02-16 02:07 | HP ---
Date of Admission: 02/15/2018 Chief Complaint: Abdominal pain, diarrhea. Code Status: Full. No medical power of personal injury attorney or living will. Primary Care Physician: At the [place]. History Of Present Illness: The patient is an 87-year-old male who was in his usual state of health with a past medical history of hypertension, hyperlipidemia, recent history of CVA with no residual w eakness other than some speech abnormality and some right-sided weakness. The patient was in his [facility] state of health until day of admission when the patient had sudden onset of abdominal pain which w as in the lower quadrants associated with some diarrhea. No nausea, vomiting, fever, chills. No tra [place] outside the country. No unusual foods or well water. The patient is hard of hearing and it is d ifficult to communicate with him. The history is supplemented by previous records, ER physician, sta ff, and family members who were present at the bedside. The patient has been having loose stools and has been constipated. No blood in the stools. The patient came into the ER for further evaluation. Upon arrival, his vital signs are stable. He was afebrile. His workup revealed normal WBC count. 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 The patient was then referred for admission. He was given an enema in the ER. When seen in the ER, he w as awake, alert, oriented, in mild distress. Past Medical History: Hypertension, hyperlipidemia, CVA, hearing loss, shoulder dislocation, gastroe sophageal reflux disease. Past Surgical History: Hernia repair, shoulder surgery on the right. Allergies: NO KNOWN DRUG ALLERGIES. Medications: List reviewed. Family History: Father had coronary artery disease and brothers had coronary artery disease. Cancer also runs in his family. Social History: Never smoked. No use of alcohol or illicit drug use. The patient does require assi stance with his activities of daily living. Review of Systems: An 11-point system reviewed, negative except as per HPI. Physical Examination: Vital Signs: Stable, afebrile. General: Awake, alert, oriented, some mild distress due to pain. Elderly male, somewhat dehydrated. HEENT: Normocephalic, atraumatic. PERRLA. EOMI. Dry mucous membranes. Oropharynx is clear. Poor dentition. Conjunctivae are anicteric. Neck: Supple. No JVD. Trachea midline. CV: S1, S2. No murmurs. Regular rate and rhythm. Peripheral pulses are present. RESPIRATORY: Clear to auscultation bilaterally. No wheezing. No stridor. No use of accessory musc les. Gastrointestinal: Abdomen is slightly distended. Mild tenderness to palpation on the lower quadrant . No rebound or guarding. No rigidity. No hepatomegaly. Extremities: No clubbing, cyanosis, or edema. No calf tenderness. Neuro: Cranial nerves 2 through 12 intact grossly. No focal neurological deficit. The patient does have some speech abnormality and hearing loss. Skin: No rashes. Normal skin turgor. Laboratory Data: UA pending. Sodium 139, potassium 3.9, chloride 105, CO2 29, BUN 20, creatinine 1. 010, glucose 109, calcium 7.7, albumin 2.2, amylase 19, lipase 80. WBC 6, H and H 11.3/34.5, platele ts 213, neutrophils 68%, 4% bands. CT scan of the abdomen and pelvis personally reviewed showed sign ificant fecal retention in the colon, wall thickening, and mild fluid surrounding the rectosigmoid co k[place] favors stercoral colitis, gallbladder distention, infrarenal abdominal aortic aneurysm with irreg ular mural thrombus as detailed. Assessment And Plan: An 87-year-old male with: 1.Mild rectosigmoid colitis. We will start on IV antibiotics and IV fluids. 2.Fecal retention. The patient received enema x1. We will start on bowel regimen with Colace, Anna LAX, and Dulcolax. We will continue with p.r.n. enema as needed. 3.Severe protein-calorie malnutrition. Albumin 2.2. 4.Acute dehydration. We will continue with IV fluids. 5.History of cerebrovascular accident. Resume aspirin and statin. 6.Essential hypertension, stable. We will resume home medications. 7.Gastroesophageal reflux disease without esophagitis. Continue PPI. 8.Dyslipidemia. Statin. 9.Gastrointestinal and deep venous thrombosis prophylaxis with PPI and Lovenox. Plan: Admit the patient to [facility] as observation. MARCELLA Voice ID: [id number]
[2018-02-16 05:23] LABS: Absolute Lymphocytes (CBC) 1.5 K/uL (0.7-4.9); Absolute Monocytes 0.4 K/uL (0.1-1.3); Absolute Neutrophil 3.3 K/uL (1.8-8.0); Basophils % 0.5 % (0-1.3); Eosinophils % 1.9 % (0-4.4); Hematocrit 33.2 % (39.6-49.0); Lymphocytes % 28.4 % (15.3-44.8); MCH 30.4 pg (27.0-35.0); MPV 8.5 fL (7.6-11.3); RBC Red Blood Cell Count 3.61 M/uL (4.33-5.43)
[2018-02-16] MEDS: NA CHLORIDE 0.9% 1,000 ML IV SCH (05:25)
[2018-02-16 05:46] LABS: Magnesium 2.3 mg/dL (1.8-2.4)
[2018-02-16] MEDS ORDERED: ASPIRIN 81 MG CHEWABLE TABLET PO SCH (09:00)
[2018-02-16] MEDS ORDERED: AMLODIPINE 5 MG TAB PO SCH (09:00)
[2018-02-16] MEDS: CIPROFLOXACIN 400mg IV 400 MG/200 ML BAG IV SCH (09:40)
[2018-02-16] MEDS: METRONIDAZOLE 500mg IVPB 500 MG/100 ML BAG IV SCH ×2 (09:40)
[2018-02-16] MEDS: ENOXAPARIN 40 MG/0.4 ML SQ SCH (09:49)
[2018-02-16] MEDS: DOCUSATE NA 100 MG CAP PO SCH (09:49)
[2018-02-16] MEDS: PANTOPRAZOLE 40MG TABLET PO SCH (09:49)
[2018-02-16 10:03] VITALS: O2SAT 96
[2018-02-16 12:52] VITALS: BP 97/56; TEMP 97.5
--- NOTE | 2018-02-17 08:29 | DS ---
Date of Discharge: 02/16/2018 Admitting Diagnoses: 1. Colitis. 2. Fecal impaction with retention. 3. Severe protein-calorie malnutrition, albumin 2.2. 4. Acute dehydration. 5. History of cerebrovascular accident. 6. Essential hypertension. 7. Gastroesophageal reflux disease without esophagitis. 8. Dyslipidemia. Discharge Diagnoses: 1. Mild rectosigmoid colitis. We will finish our course of antibiotics. 2. Fecal retention, resolved. The patient will need to be on a bowel regimen , increase fiber, and fluids. 3. Acute dehydration, improved with IV fluids. 4. Severe protein-calorie malnutrition. The patient will need protein supplementation. 5. History of cerebrovascular accident. Continue aspirin and statin. 6. Essential hypertension, stable. 7. Gastroesophageal reflux disease without esophagitis. Continue PPI. 8. Dyslipidemia. Statin. 9. Abdominal aortic aneurysm. 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 The patient was admitted to the hospital for dehydration and colitis. He was started on IV antibiotics. He was started on a bowel regimen with Colace, MiraLAX, Dulcolax, enema was given. He did have a bowel movement and was no longer constipated. He was found to have severe protein-calorie malnutrition with a low albumin of 2.2. Protein supplementation was initiated. Regarding his incidental finding of abdominal aortic aneurysm, he will need a repeat ultrasound in 3-6 months for continued surveillance of the Triple A. 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 The patient does dip tobacco, however, has never smoked. The patient has been feeling better. He was able to have bowel movements. He was no longer dehydrated. He was then cleared for discharge and was sent home in a stable condition. Activity: As tolerated. Medications: As per medication reconciliation list. Followup: Follow up with primary care physician in 2-3 days. Establish care with the CT surgeon to have further evaluation of abdominal aortic aneurysm. Return to ER for worsening condition. Diet: Heart healthy. Increase fiber in the diet. Physical Examination: General: Awake, alert, oriented x3. In no acute distress. Elderly male. CV: S1, S2. No murmurs. Respiratory: Moving air well bilaterally. Abdomen: Soft, nontender, nondistended. Positive bowel sounds. Extremities: No clubbing, cyanosis, edema. Neurologic: Nonfocal. SA/MODL Voice ID: [id number] Report ID: [id number] MTDD
== END 2018-02-16 11:58 | disposition home or self-care (01) ==
LOC: ER 11:58 → ERHOLD 15:49 → 2ND 16:47
PROVIDERS: ADMIT Family Medicine; ATTEND Family Medicine
DX: K52.9 Noninfective gastroenteritis and colitis, unspecified (principal); E43 Unspecified severe protein-calorie malnutrition; I69.351 Hemiplegia and hemiparesis following cerebral infarction affecting right dominant side; E86.0 Dehydration; I10 Essential (primary) hypertension; K21.9 Gastro-esophageal reflux disease without esophagitis; E78.5 Hyperlipidemia, unspecified; I71.4 Abdominal aortic aneurysm, without rupture; K59.00 Constipation, unspecified; F17.220 Nicotine dependence, chewing tobacco, uncomplicated; K82.8 Other specified diseases of gallbladder; I69.328 Other speech and language deficits following cerebral infarction; H91.90 Unspecified hearing loss, unspecified ear
CPT/HCPCS: 36415; 74177; 80048; 80053; 80076; 82150; 83690; 83735; 85025 ×2; 94760 ×2; 96374; 96375; 97163; 99285; G0378 ×2; J0744; J1650; J2405; J7030 ×3; Q9967; 81003; 81015

== ENCOUNTER 2018-02-19 12:49 | Emergency (ER) | payer MEDICARE ==
--- NOTE | 2018-02-19 13:52 | RAD REPORT ---
EXAM DESCRIPTION: RAD - Chest Single View - 02/19/2018 1:42 pm CLINICAL HISTORY: ABDOMINAL DISTENTION Chest pain. COMPARISON: Chest Single View dated 11/29/2017 FINDINGS: Portable technique limits examination quality. The lungs are grossly clear. The heart is normal in size. No displaced fractures.Surgical clips are n oted in the upper abdomen. IMPRESSION: No acute intrathoracic process suspected.
[2018-02-19 13:53] LABS: Absolute Lymphocytes (CBC) 2.1 K/uL (0.7-4.9); Absolute Monocytes 0.4 K/uL (0.1-1.3); Absolute Neutrophil 3.6 K/uL (1.8-8.0); Basophils % 0.6 % (0-1.3); Eosinophils % 1.6 % (0-4.4); Hematocrit 33.1 % (39.6-49.0); Lymphocytes % 33.1 % (15.3-44.8); MCH 30.2 pg (27.0-35.0); MCV 91.2 fL (80-100); MPV 8.2 fL (7.6-11.3); RBC Red Blood Cell Count 3.63 M/uL (4.33-5.43)
[2018-02-19] MEDS ORDERED: NA CHLORIDE 0.9% 1,000 ML ONE ×2 (13:53→15:16)
[2018-02-19] MEDS ORDERED: LACTULOSE 20 GM/30 ML UCUP ONE (13:53)
[2018-02-19] MEDS ORDERED: BISACODYL 10 MG RECTAL SUPP ONE (13:53)
[2018-02-19 13:57] LABS: Protime INR 1.33
[2018-02-19 14:17] LABS: ALT/SGPT 24 U/L (12-78); AST/SGOT 40 U/L (15-37); Albumin 2.2 g/dL (3.4-5.0); Alkaline Phosphatase 113 U/L (45-117); BUN Blood Urea Nitrogen 17 mg/dL (7-18); Bicarbonate 30 mmol/L (21-32); Bilirubin Direct 0.2 mg/dL (0-0.2); Bilirubin Total 0.6 mg/dL (0.2-1.0); CKMB Creatine Kinase MB < 1.0 ng/mL (0.3-3.6); Creatine Phosphokinase 28 U/L (39-308); Glucose Level 139 mg/dL (74-106); Lipase 139 U/L (73-393); Magnesium 2.3 mg/dL (1.8-2.4); NT PRO-BNP 386 pg/mL (<450); Potassium 4.1 mmol/L (3.5-5.1); Protein, Total 6.7 g/dL (6.4-8.2); Sodium Level 138 mmol/L (136-145)
[2018-02-19 14:19] LABS: Urine Blood NEGATIVE (NEG); Urine Glucose NEGATIVE (NEG); Urine Protein NEGATIVE (NEG); Urine Specific Gravity 1.015 (1.005-1.030)
[2018-02-19 15:15] LABS: Blood Morphology Comment NOTED (NOT SEEN); Burr Cells 1+; Ovalocytes 1+; Platelet Estimate ADEQ
--- NOTE | 2018-02-19 15:34 | EKG ---
Test Date: 2018-02-19 Test Time: 13:25:41 Clinical Laboratory Scientist: CHRISTIAN MEASUREMENT RESULTS: Intervals: Rate: 76 VA: 256 QRSD: 84 QT: 370 QTc: 416 [place]: P: 30 VA: 256 QRS: -16 T: 48 INTERPRETIVE STATEMENTS: Sinus rhythm with 1st degree AV block Cannot rule out Anterior infarct, age undetermined Abnormal ECG Compared to ECG 11/29/2017 02:44:31 Myocardial infarct finding now present Electronically Signed On 02-19-18 15:33:21 CDT by Eben Ramirez
--- NOTE | 2018-02-19 15:41 | RAD REPORT ---
EXAM DESCRIPTION: CTAbdomen Pelvis W Contrast - 02/19/2018 3:26 pm CLINICAL HISTORY: Abdominal pain. ABD PAIN COMPARISON: Abdomen Pelvis W Contrast dated 02/15/2018 TECHNIQUE: Biphasic CT imaging of the abdomen and pelvis was performed with 100 ml non-ionic IV cont rast. All CT scans are performed using dose optimization technique as appropriate and may include automated exposure control or mA/KV adjustment according to patient size. FINDINGS: The lung bases are clear.A moderate hiatal hernia is present with mild mucosal thickening seen. The liver demonstrates no focal mass or biliary dilatation. The spleen, pancreas, adrenal glands and kidneys are within normal limits. Irregular infrarenal abdominal aortic aneurysm is again noted, unch anged. A large amount of stool is seen in the colon with thickening of the rectosigmoid colon wall is seen w ith mild surrounding fluid. The proximal colon is distended with air. No perforation. The appendix is normal. No evidence of significant lymphadenopathy. No suspicious bony findings. IMPRESSION: Moderate stercoral colitis involving the rectosigmoid colon is noted with significant fe sorin retention air distention of the colon present, without evidence of perforation.
[2018-02-19] MEDS ORDERED: CIPROFLOXACIN 400mg IV 400 MG/200 ML BAG IV ONE (16:22)
[2018-02-19] MEDS ORDERED: METRONIDAZOLE 500mg IVPB 500 MG/100 ML BAG IV ONE (16:23)
--- NOTE | 2018-02-19 16:39 | ER ---
Nurse's Notes [facility] Name: Salvatore Ward Age: 88 yrs Sex: Male : 1930 Arrival Date: 02/19/2018 Time: 12:58 Bed 16 Private MD: Diagnosis: Abdominal tenderness;Constipation Presentation: 02/19 12:59 Presenting complaint: Patient states: it feels like a brick is stuck in my rectum, it ch hurts right above my hole. I just cant poop it out and it hurts so bad. EMS states: pt was discharged from [facility] 02/15/18, Dx with fecal impaction, colitis, and constipation. states the pt has been given all his meds but has not have a bm since then. pt has not followed up with pcp yet. Transition of care: patient was not received from another setting of care. Onset of symptoms was January 2018. Risk Assessment: Do you want to hurt yourself or someone else? Patient reports no desire to harm self or others. Initial Sepsis Screen: Does the patient meet any 2 criteria? No. Patient's initial sepsis screen is negative. Does the patient have a suspected source of infection? No. Patient's initial sepsis screen is negative. Care prior to arrival: None. 12:59 Method Of Arrival: EMS: [facility] 12:59 Acuity: DENNY 3 ch Triage Assessment: 13:05 General: Appears in no apparent distress. comfortable, Behavior is calm, cooperative, ch appropriate for age. Pain: Complains of pain in anus Pain currently is 9 out of 10 on a pain scale. Pain began gradually, weeks ago. Neuro: Level of Consciousness is awake, alert, obeys commands, Oriented to person, place, time, Auto Polisher are equal bilaterally Moves all extremities. Weakness in bilateral leg(s) Gait is unsteady, Speech is normal, Facial symmetry appears normal, Facial symmetry: tongue is midline. Respiratory: Airway is patent Respiratory effort is even, unlabored, Breath sounds are coarse bilaterally. GI: Abdomen is round non-distended, Bowel sounds present X 4 quads. Abd is soft and non tender X 4 quads. Reports constipation, nausea, pain right at the bottom of his rectum. states it feels like a brick. : No signs and/or symptoms were reported regarding the genitourinary system. Derm: Skin is pink, warm \T\ dry. Musculoskeletal: Circulation, motion, and sensation intact. Historical: - Allergies: 13:05 No Known Allergies; ch - Home Meds: 13:05 Colace oral oral [Active]; metronidazole 500 mg Oral tab 1 tab every 8 hours [Active]; ch GlycoLax 17 gram/dose oral powd once daily [Active]; Norvasc 5 mg Oral tab 1 tab once daily [Active]; aspirin 81 mg Oral chew 1 tab once daily [Active]; Lipitor 40 mg Oral tab 1 tab once daily [Active]; - PMHx: 13:05 Gastric Reflux; HARD OF HEARING; Hyperlipidemia; Hypertension; right shoulder ch dislocation; fecal impaction; colitis; needs assistance with ADL's; - PSHx: 13:05 shoulder sx; Hernia repair; ch - Immunization history:: Adult Immunizations up to date. - Social history:: Smoking status: Patient/guardian denies using tobacco, Patient/guardian denies using alcohol, street drugs. - Ebola Screening: : Patient negative for fever greater than or equal to 101.5 degrees Fahrenheit, and additional compatible Ebola Virus Disease symptoms Patient denies exposure to infectious person Patient denies travel to an Ebola-affected area in the 21 days before illness onset No symptoms or risks identified at this time. - Family history:: not pertinent, pertinent for. Screenin:15 Abuse screen: Denies threats or abuse. Denies injuries from another. Nutritional jl7 screening: No deficits noted. Tuberculosis screening: No symptoms or risk factors identified. Fall Risk IV access (20 points). Total [place] Fall Scale indicates No Risk (0-24 pts). Assessment: 13:15 General: Appears in no apparent distress. uncomfortable, Behavior is calm, cooperative, jl7 appropriate for age. Pain: Complains of pain in abdomen Pain does not radiate. Pain currently is 9 out of 10 on a pain scale. Quality of pain is described as pressure, Pain began 2-3 days ago. Is continuous. Neuro: Level of Consciousness is awake, alert, obeys commands, Oriented to person, place, time. Cardiovascular: Patient's skin is warm and dry. Respiratory: Airway is patent Respiratory effort is even, unlabored, Respiratory pattern is regular, symmetrical, Breath sounds are clear bilaterally. GI: Abdomen is flat, non-distended, Bowel sounds present X 4 quads. Abd is soft X 4 quads Abdomen is tender to palpation X 4 quads. Reports constipation, Patient currently denies diarrhea, nausea, vomiting. : No signs and/or symptoms were reported regarding the genitourinary system. EENT: No signs and/or symptoms were reported regarding the EENT system. Derm: Skin is pink, warm \T\ dry. Musculoskeletal: No signs and/or symptoms reported regarding the musculoskeletal system. 14:15 Reassessment: No changes from previously documented assessment. Patient and/or family jl7 updated on plan of care and expected duration. Pain level reassessed. Patient is alert, oriented x 3, equal unlabored respirations, skin warm/dry/pink. 15:30 Reassessment: Patient appears in no apparent distress at this time. Patient and/or mg2 family updated on plan of care and expected duration. Pain level reassessed. Patient is alert, oriented x 3, equal unlabored respirations, skin warm/dry/pink. 16:30 Reassessment: Patient appears in no apparent distress at this time. Patient and/or mg2 family updated on plan of care and expected duration. Pain level reassessed. Patient is alert, oriented x 3, equal unlabored respirations, skin warm/dry/pink. 17:28 Reassessment: patient passed stool in large amount in ed. dr lawrence came down and [facility] assessed the patient and decided to discharge him after the antibiotic infusion. Vital Signs: 13:05 BP 127 / 78; Pulse 98; Resp 18; Temp 98.3(O); Pulse Ox 99% on R/A; Weight 47.17 kg; Height 5 ft. 8 in. (172.72 cm); Pain 9/10; 14:24 BP 128 / 70; Pulse 73; Resp 18; Pulse Ox 99% on R/A; mh5 15:16 BP 138 / 95; Pulse 79; Resp 18; Pulse Ox 97% on R/A; mh5 17:30 BP 126 / 89; Pulse 78; Resp 18; Pulse Ox 100% on R/A; Pain 0/10; mg2 18:00 BP 122 / 78; Pulse 89; Resp 18; Pulse Ox 100% ; Pain 0/10; mg2 13:05 Body Mass Index 15.81 (47.17 kg, 172.72 cm) ED Course: 12:58 Patient arrived in ED. ch 13:01 Triage completed. ch 13:03 hCristian Garcia MD is Attending Physician. renetta 13:05 Arm band placed on left wrist. Patient placed in an exam room, on a stretcher, on pulse ch oximetry, Patient notified of wait time. 13:32 EKG done, by milking machine technician. reviewed by Christian Garcia MD. at1 13:41 X-ray completed. Portable x-ray completed in exam room. Patient tolerated procedure ml well. 13:42 XRAY Chest (1 view) In Process Unspecified. EDMS 13:44 Светлана Hart, GABRIEL is Primary Nurse. jl7 14:15 Patient has correct armband on for positive identification. Placed in gown. Bed in low jl7 position. Call light in reach. Side rails up X2. hall monitor on. Pulse ox on. NIBP on. Warm blanket given. 14:15 Maintain EMS IV. Dressing intact. Good blood return noted. Site clean \T\ dry. Gauge \T\ jl 7 site: 20 left forearm . 15:26 CT Abd/Pelvis - W/Contrast In Process Unspecified. EDMS 15:34 Report given to GABRIEL Flores. jl7 15:35 Primary Nurse role handed off by Светална Hart RN jl7 15:39 Mark Luke RN is Primary Nurse. mg2 16:38 Ginger Borja MD is Hospitalizing Provider. renetta 17:17 Ginger Borja MD information specialist. rp3 18:42 No provider procedures requiring assistance completed. IV discontinued, intact, mg2 bleeding controlled, No redness/swelling at site. Pressure dressing applied. Administered Medications: 13:50 Drug: Dulcolax Suppository 10 mg Route: [place]; jl7 17:26 Follow up: Response: No adverse reaction; Other; patient passed stool mg2 13:55 Drug: Lactulose 30 grams Volume: 45 ml; Route: PO; jl7 17:27 Follow up: Response: No adverse reaction mg2 13:55 Drug: NS 0.9% 1000 ml Route: IV; Rate: 1 bolus; Site: left forearm; jl7 14:18 Not Given (Duplicate Order): NS 0.9% 1000 ml IV at 125 ml/hr continuous jl7 15:42 Drug: NS 0.9% 1000 ml Route: IV; Rate: 125 ml/hr; Site: left forearm; mg2 16:23 Drug: Flagyl 500 mg Volume: 100 ml; Route: IVPB; Rate: 200 ml/hr; Infused Over: 30 mg2 mins; Site: left hand; 17:27 Follow up: IV Status: Completed infusion mg2 16:56 Drug: Cipro 400 mg Volume: 200 ml; Route: IVPB; Infused Over: 60 mins; Site: left hand; mg2 17:26 Not Given (Physician Discretion): Lactulose 30 grams 45 ml PO once mg2 17:26 Drug: Rocephin - (cefTRIAXone) 1 grams Route: IVPB; Infused Over: 30 mins; Site: left mg2 forearm; Intake: Outcome: 16:39 Decision to Hospitalize by Provider. renetta 17:17 Discharge ordered by . rp3 18:41 Discharged to home via wheelchair, with family. mg2 18:41 Condition: stable 18:41 Discharge instructions given to patient, family, Instructed on discharge instructions, follow up and referral plans. medication usage, Demonstrated understanding of instructions, follow-up care. 18:42 Patient left the ED. mg2 Signatures: Dispatcher [employer] EDDebbie James RN RN Christian Higginbotham MD MD cha Lopez, Luana Xie, excelsior machine operator EKG Tat1 Paulette Reid 5 Светлана Hart RN RN jl7 Ginger Borja MD MD rp3 Mark Luke RN RN mg2 Corrections: (The following items were deleted from the chart) 13:09 13:05 BP 127 / 78; Pulse 68bpm; Resp 18bpm; Pulse Ox 99% RA; Temp 98.3F Oral; 47.17 kg; ch Height 5 ft. 8 in.; BMI: 15.8; Pain 9/10; ch
--- NOTE | 2018-02-19 16:39 | EDPHYS ---
Physician Documentation [facility] Name: Salvatore Ward Age: 88 yrs Sex: Male : 1930 Arrival Date: 02/19/2018 Time: 12:58 Bed 16 Private MD: ED Physician Christian Garcia HPI: 02/19 13:56 This 88 yrs old Male presents to ER via EMS with complaints of Constipation. renetta 13:56 The patient presents with abdominal pain in the upper abdomen, in the lower abdomen, renetta abdominal distention in the upper abdomen, in the lower abdomen, blunt injury to the upper abdomen, to the lower abdomen. Onset: The symptoms/episode began/occurred 1 day(s) ago. The symptoms do not radiate. Associated signs and symptoms: Pertinent positives: constipation. The symptoms are described as burning, constant, crampy. Modifying factors: The symptoms are alleviated by nothing, the symptoms are aggravated by nothing. Severity of pain: At its worst the pain was mild moderate in the emergency department the pain is unchanged. The patient has experienced a previous episode. Historical: - Allergies: 13:05 No Known Allergies; ch - Home Meds: 13:05 Colace oral oral [Active]; metronidazole 500 mg Oral tab 1 tab every 8 hours [Active]; ch GlycoLax 17 gram/dose oral powd once daily [Active]; Norvasc 5 mg Oral tab 1 tab once daily [Active]; aspirin 81 mg Oral chew 1 tab once daily [Active]; Lipitor 40 mg Oral tab 1 tab once daily [Active]; - PMHx: 13:05 Gastric Reflux; HARD OF HEARING; Hyperlipidemia; Hypertension; right shoulder ch dislocation; fecal impaction; colitis; needs assistance with ADL's; - PSHx: 13:05 shoulder sx; Hernia repair; ch - Immunization history:: Adult Immunizations up to date. - Social history:: Smoking status: Patient/guardian denies using tobacco, Patient/guardian denies using alcohol, street drugs. - Ebola Screening: : Patient negative for fever greater than or equal to 101.5 degrees Fahrenheit, and additional compatible Ebola Virus Disease symptoms Patient denies exposure to infectious person Patient denies travel to an Ebola-affected area in the 21 days before illness onset No symptoms or risks identified at this time. - Family history:: not pertinent, pertinent for. ROS: 13:56 Constitutional: Negative for fever, chills, and weight loss, Eyes: Negative for injury, renetta pain, redness, and discharge, ENT: Negative for injury, pain, and discharge, Neck: Negative for injury, pain, and swelling, Cardiovascular: Negative for chest pain, palpitations, and edema, Respiratory: Negative for shortness of breath, cough, wheezing, and pleuritic chest pain, Back: Negative for injury and pain, : Negative for injury, bleeding, discharge, and swelling, MS/Extremity: Negative for injury and deformity, Skin: Negative for injury, rash, and discoloration, Neuro: Negative for headache, weakness, numbness, tingling, and seizure. 13:56 Respiratory: Positive for cough. 13:56 Abdomen/GI: Positive for abdominal pain, abdominal cramps, abdominal distension. Exam: 13:56 Constitutional: This is a well developed, well nourished patient who is awake, alert, renetta and in no acute distress. Head/Face: Normocephalic, atraumatic. Eyes: Pupils equal round and reactive to light, extra-ocular motions intact. Lids and lashes normal. Conjunctiva and sclera are non-icteric and not injected. Cornea within normal limits. Periorbital areas with no swelling, redness, or edema. ENT: Nares patent. No nasal discharge, no septal abnormalities noted. Tympanic membranes are normal and external auditory canals are clear. Oropharynx with no redness, swelling, or masses, exudates, or evidence of obstruction, uvula midline. Mucous membranes moist. Neck: Trachea midline, no thyromegaly or masses palpated, and no cervical lymphadenopathy. Supple, full range of motion without nuchal rigidity, or vertebral point tenderness. No Meningismus. Chest/axilla: Normal chest wall appearance and motion. Nontender with no deformity. No lesions are appreciated. Cardiovascular: Regular rate and rhythm with a normal S1 and S2. No gallops, murmurs, or rubs. Normal PMI, no JVD. No pulse deficits. Respiratory: Lungs have equal breath sounds bilaterally, clear to auscultation and percussion. No rales, rhonchi or wheezes noted. No increased work of breathing, no retractions or nasal flaring. Back: No spinal tenderness. No costovertebral tenderness. Full range of motion. Male : Normal genitalia with no discharge or lesions. Skin: Warm, dry with normal turgor. Normal color with no rashes, no lesions, and no evidence of cellulitis. MS/ Extremity: Pulses equal, no cyanosis. Neurovascular intact. Full, normal range of motion. Neuro: Awake and alert, GCS 15, oriented to person, place, time, and situation. Cranial nerves II-XII grossly intact. Motor strength 5/5 in all extremities. Sensory grossly intact. Cerebellar exam normal. Normal gait. Psych: Awake, alert, with orientation to person, place and time. Behavior, mood, and affect are within normal limits. 13:56 Abdomen/GI: Inspection: abdomen appears normal, Bowel sounds: hyperactive, Palpation: mild abdominal tenderness, in all quadrants, Liver: no appreciated palpable abnormalities, Hernia: not appreciated. Vital Signs: 13:05 BP 127 / 78; Pulse 98; Resp 18; Temp 98.3(O); Pulse Ox 99% on R/A; Weight 47.17 kg; ch Height 5 ft. 8 in. (172.72 cm); Pain 9/10; 14:24 BP 128 / 70; Pulse 73; Resp 18; Pulse Ox 99% on R/A; mh5 15:16 BP 138 / 95; Pulse 79; Resp 18; Pulse Ox 97% on R/A; mh5 17:30 BP 126 / 89; Pulse 78; Resp 18; Pulse Ox 100% on R/A; Pain 0/10; mg2 18:00 BP 122 / 78; Pulse 89; Resp 18; Pulse Ox 100% ; Pain 0/10; mg2 13:05 Body Mass Index 15.81 (47.17 kg, 172.72 cm) ch MDM: 13:03 Patient medically screened. [facility] 13:59 Data reviewed: vital signs, nurses notes, lab test result(s), EKG, radiologic studies. [facility] 17:18 Physician consultation:. Special discussion: Pt was seen and examined in the ED with RN valery3 at bedside. Pt had a huge BM and feels much better than before. No N/V/SOB/CP and or Abd pain noted at this time. Pt has been usign miralax and Colace at home. Had not had BM for 2 days. Pt is stable at this time. No WBC elevation, No acute lab abnormality and vitals are stable. Pt to continue taking cipro and flagy and DC home from ER. Family educated on using enema when needed for fecal impacation. . 02/19 13:07 Order name: Basic Metabolic Panel; Complete Time: 14:48 [facility] 02/19 13:07 Order name: CBC with Diff; Complete Time: 16:07 [facility] 02/19 13:07 Order name: Ckmb; Complete Time: 14:48 [facility] 02/19 13:07 Order name: CPK; Complete Time: 14:48 [facility] 02/19 13:07 Order name: LFT's; Complete Time: 14:48 [facility] 02/19 13:07 Order name: Magnesium; Complete Time: 14:48 [facility] 02/19 13:07 Order name: NT PRO-BNP; Complete Time: 14:48 [facility] 02/19 13:07 Order name: PT-INR; Complete Time: 14:48 [facility] 02/19 13:07 Order name: Ptt, Activated; Complete Time: 14:48 [facility] 02/19 13:07 Order name: Troponin (emerg Dept Use Only); Complete Time: 14:48 [facility] 02/19 13:07 Order name: XRAY Chest (1 view); Complete Time: 14:48 [facility] 02/19 13:07 Order name: Lipase; Complete Time: 14:48 [facility] 02/19 14:08 Order name: Urine Dipstick--Ancillary (enter results); Complete Time: 14:48 02/19 15:15 Order name: Manual Differential; Complete Time: 16:07 EDMS 02/19 13:07 Order name: EKG; Complete Time: 13:08 [facility] 02/19 13:07 Order name: Cardiac monitoring; Complete Time: 14:22 [facility] 02/19 13:07 Order name: EKG - Nurse/Tech; Complete Time: 14:22 [facility] 02/19 13:07 Order name: IV Saline Lock; Complete Time: 14:22 [facility] 02/19 13:07 Order name: Labs collected and sent; Complete Time: 14:22 [facility] 02/19 13:07 Order name: O2 Per Protocol; Complete Time: 14:22 [facility] 02/19 13:07 Order name: CT Abd/Pelvis - W/Contrast; Complete Time: 16:07 [facility] 02/19 13:07 Order name: O2 Sat Monitoring; Complete Time: 14:22 [facility] 02/19 13:07 Order name: Urine Dipstick-Ancillary (obtain specimen); Complete Time: 14:22 renetta Administered Medications: 13:50 Drug: Dulcolax Suppository 10 mg Route: NV; jl7 17:26 Follow up: Response: No adverse reaction; Other; patient passed stool mg2 13:55 Drug: Lactulose 30 grams Volume: 45 ml; Route: PO; jl7 17:27 Follow up: Response: No adverse reaction mg2 13:55 Drug: NS 0.9% 1000 ml Route: IV; Rate: 1 bolus; Site: left forearm; jl7 14:18 Not Given (Duplicate Order): NS 0.9% 1000 ml IV at 125 ml/hr continuous jl7 15:42 Drug: NS 0.9% 1000 ml Route: IV; Rate: 125 ml/hr; Site: left forearm; mg2 16:23 Drug: Flagyl 500 mg Volume: 100 ml; Route: IVPB; Rate: 200 ml/hr; Infused Over: 30 mg2 mins; Site: left hand; 17:27 Follow up: IV Status: Completed infusion mg2 16:56 Drug: Cipro 400 mg Volume: 200 ml; Route: IVPB; Infused Over: 60 mins; Site: left hand; mg2 17:26 Not Given (Physician Discretion): Lactulose 30 grams 45 ml PO once mg2 17:26 Drug: Rocephin - (cefTRIAXone) 1 grams Route: IVPB; Infused Over: 30 mins; Site: left mg2 forearm; Disposition: 02/19/18 17:17 Discharged to Home. Impression: Abdominal tenderness, Constipation. - Condition is Stable. - Discharge Instructions: High-Fiber Diet. - Medication Reconciliation Form, Thank You Letter, Antibiotic Education, Prescription Opioid Use form. - Follow up: Private Physician; When: 2 - 3 days; Reason: Recheck today's complaints, Continuance of care, Re-evaluation by your physician. - Problem is new. - Symptoms have improved. Signatures: Dispatcher [employer] EDMS Debbie Buitrago, RN RN Christian Higginbotham MD MD cha Leal, Jahala RN RN jl7 Ginger Borja MD MD rp3 Mark Luke RN RN mg2 Corrections: (The following items were deleted from the chart) 16:39 16:39 Hospitalization Ordered by Ginger Borja MD for Inpatient Admission. Preliminary [facility] diagnosis is Constipation; Left sided colitis - rectosigmoid. Bed requested for Telemetry/MedSurg (Inpatient). Status is Inpatient Admission. Condition is Fair. Problem is new. Symptoms have improved. UTI on Admission? No. renetta 17:17 16:39 02/19/2018 16:39 Hospitalization Ordered by Ginger Borja MD for Inpatient rp3 Admission. Preliminary diagnosis is Constipation; Left sided colitis - rectosigmoid; Cystitis; Bandemia. Bed requested for Telemetry/MedSurg (Inpatient). Status is Inpatient Admission. Condition is Fair. Problem is new. Symptoms have improved. UTI on Admission? No. renetta 18:42 17:17 02/19/2018 17:17 Discharged to Home. Impression: Abdominal tenderness; mg2 Constipation. Condition is Stable. Prescriptions for Dulcolax 10 mg Rectal Suppository - insert 1 suppository by RECTAL route every 12 hours As needed; 10 suppository, Miralax 17 gram/dose Oral - take 1 packet by ORAL route once daily dilute powder in 8 ounces of water or juice; 20 packet. and Forms are Medication Reconciliation Form, Thank You Letter, Antibiotic Education, Prescription Opioid Use. Follow up: Private Physician; When: 2 - 3 days; Reason: Recheck today's complaints, Continuance of care, Re-evaluation by your physician. Problem is new. Symptoms have improved. rp3
[2018-02-19] MEDS ORDERED: BISACODYL 10 MG RECTAL SUPP PR PRN (16:43)
[2018-02-19] MEDS ORDERED: NA CHLORIDE 0.9% 1,000 ML IV SCH (17:00)
[2018-02-19] MEDS ORDERED: CEFTRIAXONE/SWI 1gm 1 GM/10 ML SYR ONE (17:13)
[2018-02-19] MEDS ORDERED: FLEET ENEMA ADULT PR ONE (17:15)
[2018-02-19] MEDS ORDERED: POLYETHYL GLY 3350 17 GM/DOSE PO ONE (17:15)
--- NOTE | 2018-02-19 17:35 | P.CNS ---
Date of Consult: 02/19/18 HPI: The patient is an 87-year-old male who comes in with abdominal pain,and complains of something stuck in the rectum for 1 days. Pt was found to have severe Fecal Impaction and Colitis on abd ct here in the hospital. The patient was referred for admission for colitis. Pt was recently admitted to the hospital for similar complains and Was discharged home with ABX. He was started on a bowel regimen with Colace, MiraLAX and Dulcolax. He did have a large bowel movement in the ED and is no longer constipated when I examined him in the ER. No other complains to offer at this time. No fever, chills, SOB or CP noted. Physical Examination: Vitals: Stable General: Awake, alert, oriented x3. In no acute distress. Elderly male. CV: S1, S2. No murmurs. Respiratory: Moving air well bilaterally. Abdomen: Soft, nontender, nondistended. Positive bowel sounds. Extremities: No clubbing, cyanosis, edema. Neurologic: Nonfocal. Labs: 02/19/18 14:08: Urine pH 7.0, Ur Specific [place] 1.015, Urine Ketones Negative , Urine Blood Negative, Urine Nitrite Negative, Ur Leukocyte Esterase Trace H, Urine Glucose Negative, Urine Total Protein Negative 02/19/18 13:40: Rapid Troponin I < 0.02 02/19/18 13:40: PT 15.7 H, INR 1.33, APTT 30.2 02/19/18 13:40: WBC 6.2 D, RBC 3.63 L, Hgb 11.0 L, Hct 33.1 L, MCV 91.2, MCH 30.2, MCHC 33.1, RDW 15.1, Plt Count 204, MPV 8.2, Neutrophils % 58.7, Lymphocytes % 33.1, Monocytes % 6.0, Eosinophils % 1.6, Basophils % 0.6, Absolute Neutrophils 3.6, Segmented Neutrophils 58, Band Neutrophils 3 H, Absolute Lymphocytes 2.1, Lymphocytes 33, Monocytes 3, Absolute Monocytes 0.4, Eosinophils 2, Absolute Eosinophils 0.1, Absolute Basophils 0.0, Atypical Lymphocytes 1, Ovalocytes 1+, [place] Cells 1+, Morphology Comment Noted 02/19/18 13:40: Sodium 138, Potassium 4.1, Chloride 104, Carbon Dioxide 30, BUN 17, Creatinine 1.00, Estimated GFR 71 L, Glucose 139 H, Calcium 7.8 L, Magnesium 2.3, Total Bilirubin 0.6, Direct Bilirubin 0.2, AST 40 H, ALT 24, Alkaline Phosphatase 113, Creatine Kinase 28 L, CK-MB (CK-2) < 1.0, NT-Pro-B Natriuret Pep 386, Serum Total Protein 6.7, Albumin 2.2 L, Globulin 4.5 H, Albumin/Globulin Ratio 0.5 L, Lipase 139 Assessment and Plan: 88 y/o M with chronic history of fecal impaction and Colitis presenting to the ER with abdominal pain and found to have fecal impaction and Colitis. Pt had a BM in the ER after Lactulose and now Symptom free. Lab work WNL with no acute changes, Vitals are stable. At this time Recc to discharge pt from ER and no hospitalization required. Acute symptom of abdominal pain resolved and pt stable for DC home. Family educated on Bowel prep Regimen and Enema OTC if needed. Diet high in fiber and pt to continue with cipro and flagyl and finish the course as directed. F/u with PCP soon.
[2018-02-19] MEDS ORDERED: LACTULOSE 20 GM/30 ML UCUP PO SCH (18:00)
[2018-02-19 18:46] VITALS: TEMP 98.3
[2018-02-19 18:50] VITALS: O2SAT 100
[2018-02-19 18:51] VITALS: BP 122/78
[2018-02-19] MEDS ORDERED: CIPROFLOXACIN 400mg IV 400 MG/200 ML BAG IV SCH (21:00)
[2018-02-20] MEDS ORDERED: METRONIDAZOLE 500mg IVPB 500 MG/100 ML BAG IV SCH
== END 2018-02-19 18:42 | disposition home or self-care (01) ==
LOC: ER 12:49 → ERHOLD 16:40 → UNDOADMIN 16:40 → ER 18:42
DX: K59.00 Constipation, unspecified (principal); I10 Essential (primary) hypertension; E78.5 Hyperlipidemia, unspecified; Z79.82 Long term (current) use of aspirin
CPT/HCPCS: 36415; 71045; 74177; 80048; 80076; 81003; 82550; 82553; 83690; 83735; 83880; 84484; 85025; 85610; 85730; 93005; J0696; J0744; J7030 ×2; Q9967; 99284